=== PATIENT | male | born 1955 | race Caucasian/White ===

== ENCOUNTER 2019-04-22 06:00 | Outpatient (RCR) | payer BC, SELFPAY | END 2019-05-22 00:01 | LOC: SPT 06:00 | PROVIDERS: Family Provider Electrodiagnostic Medicine; Visit Provider Neurological Surgery | DX: Z98.1 Arthrodesis status (principal) | CPT/HCPCS: 97110 ×2; 97112 ×2 ==

== ENCOUNTER → 2019-07-13 11:40 | Outpatient (BNVA) | payer MEDICARE, OTHER, SELFPAY | PROVIDERS: Family Provider Electrodiagnostic Medicine; Visit Provider Internal Medicine | DX: Z00.00 Encounter for general adult medical examination without abnormal findings (principal); I10 Essential (primary) hypertension; E78.5 Hyperlipidemia, unspecified; N52.9 Male erectile dysfunction, unspecified; E78.00 Pure hypercholesterolemia, unspecified; G47.33 Obstructive sleep apnea (adult) (pediatric); Z86.010 Personal history of colon polyps; Z79.899 Other long term (current) drug therapy; R53.83 Other fatigue; Z12.5 Encounter for screening for malignant neoplasm of prostate | CPT/HCPCS: 80061; 84443; 85025; G0103 ==

== ENCOUNTER → 2020-01-09 08:39 | Outpatient (BNVA) | payer MEDICARE, OTHER, SELFPAY | PROVIDERS: Family Provider Electrodiagnostic Medicine; Visit Provider Internal Medicine | DX: I10 Essential (primary) hypertension (principal); K75.81 Nonalcoholic steatohepatitis (NASH); Z12.5 Encounter for screening for malignant neoplasm of prostate | CPT/HCPCS: 80053; 80061; 84443 ==

== ENCOUNTER 2020-01-31 08:02 | Outpatient (CLI) | payer MEDICARE, OTHER, SELFPAY ==
--- NOTE | 2020-01-31 08:00 | MR_ITS ---
WS: [id number] MRI LUMBAR SPINE NONCONTRAST TECHNIQUE: Sagittal T1, T2 and STIR imaging. Axial T1 and T2 imaging. CLINICAL INFORMATION: M51.9 Unspecified thoracic, thoracolumbar and lumbosacral... COMPARISON: MRI FINDINGS: Counting performed from the craniocervical junction. S1 is partially lumbarized. This is in keeping with the prior numbering convention Mild lumbar curve. No acute compression. No high-grade central canal stenosis. Interbody fusion L3-4. Postoperative changes are new from previous. L1-L2: Shallow right subarticular protrusion with narrowing of the right subarticular recess. Mild ri ght and no significant left foraminal narrowing. Mild facet arthropathy. Impingement traversing right L2 nerve root. L2-L3: Mild annular bulging. Moderate facet arthropathy. Mild left and no significant right foraminal narrowing. L3-L4: Prior postoperative changes interbody fusion. Moderate central canal stenosis. Moderate facet arthropathy. Mild bilateral foraminal narrowing. L4-L5: Mild disc bulging in combination with facet arthropathy and ligament flavum hypertrophy result s in moderate to severe central canal stenosis. This is unchanged from previous. Mild right and no si gnificant left foraminal narrowing. L5-S1: Mild disc bulging with slight effacement of the ventral thecal sac. Mild central canal stenosi s. Impingement traversing S1 nerve roots. Moderate facet arthropathy. Moderate left and mild right fo raminal narrowing. S1-S2: Mild annular bulging with slight effacement of ventral thecal sac. Mild to moderate facet arth ropathy. Spinal canal and foramen are patent. MR/MR lumbar spine wo con* [id number] IMPRESSION: 1. Mild lumbar curve. No acute compression. 2. Postoperative changes interbody fusion L3-4 new from previous. Moderate katherin tral canal stenosis at this level with narrowing of the subarticular recess. 3. Moderate to severe central canal stenosis L4-5 unchanged from previous. 4. Mild central canal stenosis L5-S1 with impingement traversing S1 nerve root s. 5. Mild to moderate foraminal narrowing worse at bilateral L3-4, right L4-5 an d bilateral L5-S1. 6. Moderate facet arthropathy L4-L5 and L5-S1. 7. Shallow right subarticular protrusion L1-2 impinges the traversing right L2 nerve root. 8. Counting performed from the craniocervical junction with lumbarization of S 1. Recommend plain film correlation prior to surgical intervention.
== END 2020-01-31 08:03 | disposition home or self-care (01) ==
LOC: RADSHAW 08:05
PROVIDERS: PCP Internal Medicine; Visit Provider Internal Medicine
DX: M51.9 Unspecified thoracic, thoracolumbar and lumbosacral intervertebral disc disorder (principal); M48.061 Spinal stenosis, lumbar region without neurogenic claudication; M48.07 Spinal stenosis, lumbosacral region; M47.816 Spondylosis without myelopathy or radiculopathy, lumbar region; M47.817 Spondylosis without myelopathy or radiculopathy, lumbosacral region; M51.26 Other intervertebral disc displacement, lumbar region
CPT/HCPCS: 72148

== ENCOUNTER → 2020-03-25 08:40 | Outpatient (BNVA) | payer MEDICARE, OTHER, SELFPAY | PROVIDERS: PCP Internal Medicine; Visit Provider Orthopaedic Surgery | DX: M51.9 Unspecified thoracic, thoracolumbar and lumbosacral intervertebral disc disorder (principal) | CPT/HCPCS: 72114 ==

== ENCOUNTER → 2020-04-18 10:07 | Outpatient (BNVA) | payer MEDICARE, OTHER, SELFPAY | PROVIDERS: PCP Internal Medicine; Visit Provider Nurse Practitioner Family | DX: Z20.828 Contact with and (suspected) exposure to other viral communicable diseases (principal) | CPT/HCPCS: 87635 ==

== ENCOUNTER 2020-05-28 12:13 | Day surgery (SDC) | payer MEDICARE, OTHER, SELFPAY ==
[2020-05-27 14:58] VITALS: BMI 36.2
[2020-05-28] VITALS (8 sets, daily range): BP systolic 104–139; BP diastolic 64–85; PULSE 69–77; RESP 12–20; TEMP 36.1–36.6; O2SAT 95–100
--- NOTE | 2020-05-28 | XR_ITS ---
WS: [id number] Lumbar spine, AP and lateral C-arm fluoroscopy views of the lumbar spine in the OR, 05/28/2020 Clinical Data: Laminectomy Comparison: Lumbar spine, 03/25/2020. Findings: The patient has had interbody fusion at L3-L4 with pedicle screws on the left lateral aspect attached with a plate. Dr. Glez performed a lumbar decompression. XR/XR lumbar spine 2-3V* [id number] Impression: L3-L4 lateral body screws.
--- NOTE | 2020-05-28 | SCC_ITS ---
Procedure Done: 1. L3/4 Laminectomy with partial facetectomy 2. L4/5 Laminectomy with partial facetectomy 3. L5/S1 Laminectomy with partial facetectomy 38.0 seconds of fluoroscopic guidance, for a cumulative dose of 27.74 mGy, was provided to Dr. Glez by the radiology department. C-arm images of the lumbar spine were saved for the patient's permanent record. [facility]
[2020-05-28] MEDS: gabapentin 300 mg Capsule PO (12:32)
[2020-05-28] MEDS: sodium chloride 0.9% 1,000 ML 30 ML IV (12:35)
--- NOTE | 2020-05-28 12:43 | ANES.PREANE2 ---
Pre-Anesthetic Assessment Pre-Anesthetic Assessment: Height/Weight: Height 1.8 m Weight 117.934 kg Temp Pulse Resp BP Pulse Ox 97.2 F L 69 18 139/85 98 05/28/20 12:26 05/28/20 12:26 05/28/20 12:26 05/28/20 12:26 05/28/20 12:26 Preop Diagnosis: lumbar stenosis Proposed Procedure: Operation Date: 05/28/20 13:15 Proposed Procedures p Lumbar Spine Decompression at three or more levels [id number] M51.9(Not Applicable) - Pasquale Glez, DO Was Beta Norma taken within 24 hours: N/A Last intake: Intake Last Liquid Date 05/28/20 Last Liquid Time 07:00 Last Solid Date 05/27/20 Last Solid Time 19:00 Social: Social History: No alcohol and No tobacco Exam: Pre-Anes Outpt Exam: alert, oriented x 3, clear to auscultation bilaterally and regular rate & rhythm Airway: Submandibular: WNL Cervical ROM: WNL MP: 2 Dentition: Full History/ROS: No significant history except as noted and No significant complaints Pulmonary: Comments: MORIAH CV/HEM: CV/HEM: HTN : : None reported Hepatic: Hepatic: None reported GI: GI: None reported Metabolic: Metabolic: Morbid obesity Musc/skel: Musc/skel: Lower Back Pain and OA/DJD Anesthetic Plan: ASA status: 2 Anesthesia: Anesthesia Evaluation and General Risk of > 500 ml blood loss (7ml/kg in children): No Meds/Allergies Current Medications: Current Medications Generic Name Dose Route Start Last Admin Trade Name Freq PRN Reason Stop Dose Admin Sodium Chloride 1,000 mls @ 30 ml s/hr 05/28/20 12:00 05/28/20 12:35 Sodium Chloride 0.9% IV 05/29/20 11:59 30 mls/hr .Q24H KIRA Administration PFSH Anesthesia PFSH: Medical History Obstructive sleep apnea Surgical History History of lumbar fusion Family History Other Hypertension Social History Smoking and tobacco status: former smoker Alcohol intake: current Alcohol intake frequency: few times a week History of recent travel: No Data Anesthesia Cardiac Studies: No Data to Display
--- NOTE | 2020-05-28 14:30 | W.PM.OPSUD ---
Surgery/Procedure H&P Update DATE OF PROCEDURE: May 28, 2020 DATE H&P PERFORMED: 05/13/20 H&P UPDATE INFORMATION: I have reviewed H&P completed within last 30 days and I have examined patient prior to procedure PREOP DIAGNOSIS: lumbar stenosis PLANNED PROCEDURE: Operation Date: 05/28/20 13:15 Proposed Procedures p Lumbar Spine Decompression at three or more levels [id number] M51.9(Not Applicable) - Pasquale Glez DO
--- NOTE | 2020-05-28 18:04 | PM.OP ---
Operative Report Date of procedure: May 28, 2020 Pre-op Diagnosis: lumbar stenosis Post-op diagnosis: same Procedure Done: 1. L3/4 Laminectomy with partial facetectomy 2. L4/5 Laminectomy with partial facetectomy 3. L5/S1 Laminectomy with partial facetectomy Surgeon: Pasquale Glez Anesthesia: General Estimated blood loss (mL): 25 Condition: stable Disposition: PACU Procedure: 1. L3/4 Laminectomy with partial facetectomy 2. L4/5 Laminectomy with partial facetectomy 3. L5/S1 Laminectomy with partial facetectomy Patient was brought to the operative suite placed in the prone position after undergoing anesthesia all areas impingement were well-padded patient was prepped and draped in normal sterile fashion. Skin incision made over the L3 /4,L4/5, L5-S1 levels. Attention was first brought to the L3-4 level. This was done under C-arm guidance dilators were passed to the retractors inserted and docked onto the L3 lamina patient was tilted to the contralateral side. The laminectomies perform using high-speed bur spinous processes undermine the lamina was taken down with a high-speed bur medial aspect of facet joint on the left side was taken down and then Kerrison rongeur was then used to complete the laminectomies bilaterally ligament flavum was taken down from L3-L4 bilaterally was significantly thickened medial aspect of facet joint was taken down bilaterally with the Kerrison rongeur and the L3 and L4 nerves were traced with a large curette L3 nerve traced through the L3-4 foramen bilaterally. An L4 nerve was traced around the L4 pedicle. Next it was brought to the L4-5 level. The dilators again were passed the to the tract was docked onto the L4 lamina laminectomy was performed using the high-speed bur the curettes and Kerrison rongeurs used to complete the laminectomy bilaterally ligament flavum was taken down bilaterally from L4-L5. The medial aspect of facet joints taken down the Kerrison rongeur bilaterally. Again the L4 and L5 nerves were traced to the L4 through the foramen bilaterally and the L5 around the L5 pedicle. Ligamentum flavum was Thanksgiving thickened at this level as well dura was in good repair. Was brought to the L5-S1 level again dilators past 2 retractors inserted and docked onto the L5 lamina laminectomy was performed the high-speed bur taken on the medial aspect of facet joint and bilaterally. And then the Kerrison rongeur was used to take down the lamina complete laminectomy and tenotomy aspect of facet joint and taken ligamentum flavum down from L5-S1 simply thickened dura was in good repair L5 and S1 nerves were completely traced large curette L5 nerve through the L5 foramen bilaterally and S1 around the S1 pedicles. Wounds irrigated closed with Vicryl and Monocryl suture sterile dressing applied patient was transferred to the PACU in stable condition
--- NOTE | 2020-05-28 18:30 | ANE.PACU2 ---
Inpatient post-anesthesia follow up: Airway intact: Yes Vital signs: Temperature 98 F Pulse Rate 77 Respiratory Rate 16 Blood Pressure 121/73 Pulse Oximetry 96 Oxygen Delivery Me thod Room Air Oxygen Flow Rate 8 Fraction of Inspir ed Oxygen Hydration adequate: Yes Nausea and vomiting: No Pain level: 3 Mental status: Baseline
== END 2020-05-28 19:05 | disposition home or self-care (01) ==
PROVIDERS: PCP Internal Medicine; Visit Provider Orthopaedic Surgery
PROC: (CPT 63005; principal; 2020-05-28 13:15)
DX: M48.061 Spinal stenosis, lumbar region without neurogenic claudication (principal); G47.33 Obstructive sleep apnea (adult) (pediatric); I10 Essential (primary) hypertension; M19.90 Unspecified osteoarthritis, unspecified site; E66.01 Morbid (severe) obesity due to excess calories; Z68.36 Body mass index [BMI] 36.0-36.9, adult; Z98.1 Arthrodesis status; Z87.891 Personal history of nicotine dependence
CPT/HCPCS: 63047; 63048 ×2; 12345; 72100; 76000; 96365; J0131; J0690; J1100; J2405; J2704; J3010; J3490; J7030

== ENCOUNTER → 2020-07-11 10:43 | Outpatient (BNVA) | payer MEDICARE, OTHER, SELFPAY | PROVIDERS: PCP Internal Medicine; Visit Provider Internal Medicine | DX: Z12.5 Encounter for screening for malignant neoplasm of prostate (principal); E78.00 Pure hypercholesterolemia, unspecified; I10 Essential (primary) hypertension | CPT/HCPCS: 80053; 80061; G0103 ==

== ENCOUNTER → 2020-07-14 08:38 | Outpatient (BNVA) | payer MEDICARE, OTHER, SELFPAY | PROVIDERS: PCP Internal Medicine; Referring Provider Dermatology; Visit Provider Podiatrist Foot & Ankle Surgery | DX: M25.572 Pain in left ankle and joints of left foot (principal) | CPT/HCPCS: 73610 ==

== ENCOUNTER → 2020-07-17 15:45 | Outpatient (BNVA) | payer MEDICARE, OTHER, SELFPAY | PROVIDERS: PCP Internal Medicine; Visit Provider Internal Medicine | DX: E61.1 Iron deficiency (principal); M51.9 Unspecified thoracic, thoracolumbar and lumbosacral intervertebral disc disorder; Z86.010 Personal history of colon polyps; I10 Essential (primary) hypertension; E78.00 Pure hypercholesterolemia, unspecified; G47.33 Obstructive sleep apnea (adult) (pediatric) | CPT/HCPCS: 82607; 82746; 83550; 85025 ==

== ENCOUNTER → 2020-07-23 10:19 | Outpatient (BNVA) | payer MEDICARE, OTHER, SELFPAY | PROVIDERS: PCP Internal Medicine; Visit Provider Internal Medicine | DX: E61.1 Iron deficiency (principal) | CPT/HCPCS: 82270 ==

== ENCOUNTER 2020-08-13 12:13 | Outpatient (CLI) | payer MEDICARE, OTHER, SELFPAY | END 2020-08-13 12:14 | disposition home or self-care (01) | LOC: SPT 12:14 | PROVIDERS: PCP Internal Medicine; Visit Provider Podiatrist Foot & Ankle Surgery | DX: Z46.89 Encounter for fitting and adjustment of other specified devices (principal); M76.821 Posterior tibial tendinitis, right leg | CPT/HCPCS: 97110; 97140; 97161; L3030 ==

== ENCOUNTER 2020-09-03 06:00 | Outpatient (RCR) | payer MEDICARE, OTHER, SELFPAY | END 2020-09-19 23:59 | disposition home or self-care (01) | LOC: TPT 06:00 | PROVIDERS: PCP Internal Medicine; Referring Provider Orthopaedic Surgery; Visit Provider Orthopaedic Surgery | DX: Z47.89 Encounter for other orthopedic aftercare (principal) | CPT/HCPCS: 97110; 97140; 97161 ==

== ENCOUNTER 2020-09-20 06:00 | Outpatient (RCR) | payer MEDICARE, OTHER, SELFPAY | END 2020-10-20 23:59 | disposition home or self-care (01) | LOC: TPT 06:00 | PROVIDERS: PCP Internal Medicine; Referring Provider Orthopaedic Surgery; Visit Provider Orthopaedic Surgery | DX: M76.822 Posterior tibial tendinitis, left leg (principal) | CPT/HCPCS: 97110; 97140; 97164 ==

== ENCOUNTER → 2020-12-31 08:29 | Outpatient (BNVA) | payer MEDICARE, OTHER, SELFPAY | PROVIDERS: PCP Internal Medicine; Visit Provider Internal Medicine | DX: E61.1 Iron deficiency (principal) | CPT/HCPCS: 80053; 83550; 85025 ==

== ENCOUNTER → 2021-05-31 14:08 | Outpatient (BNVA) | payer MEDICARE, SELFPAY | PROVIDERS: PCP Internal Medicine; Visit Provider Family Medicine | DX: R05.9 Cough, unspecified (principal); J01.90 Acute sinusitis, unspecified | CPT/HCPCS: 87400; 87635 ==

== ENCOUNTER → 2021-07-03 10:30 | Outpatient (BNVA) | payer MEDICARE, SELFPAY | PROVIDERS: PCP Internal Medicine; Visit Provider Internal Medicine | DX: I10 Essential (primary) hypertension (principal); Z12.5 Encounter for screening for malignant neoplasm of prostate; E78.00 Pure hypercholesterolemia, unspecified; E61.1 Iron deficiency | CPT/HCPCS: 80053; 80061; 85025; G0103 ==

== ENCOUNTER 2021-10-16 07:45 | Outpatient (CLI) | payer MEDICARE, SELFPAY ==
--- NOTE | 2021-10-16 07:55 | MR_ITS ---
WS: [id number] MRI LUMBAR SPINE WITH AND WITHOUT CONTRAST. HISTORY: LUMBAR REGION RADICULOPATHY COMPARISON: 6 05/28/2020, 01/31/2020 TECHNIQUE: Sagittal and axial multisequence imaging is submitted. Same numbering pattern will be utilized on today's examination which includes a lumbarized S1 segment . Mild curvature of the lumbar spine. Interbody spacer at L3-4. Marrow edema at the L4-5 vertebral bodi es. There is very minimal increased T2 signal within the disc. The loss of disc space height and degenerative changes at the L4-5 level are new and significantly pr ogressed since 01/31/2020. On the postcontrast images there is enhancement within the vertebral bodies but not the disc. Conus terminates normally at L1. L1-L2: Shallow RIGHT subarticular disc protrusion with mild RIGHT subarticular recess narrowing. Marly lar to the prior study. L2-L3: Mild annular disc bulging with ligamentum flavum hypertrophy and facet arthritis. Mild bilater al foraminal narrowing. L3-L4: Diffuse osteophytic ridging and disc bulge. Disc osteophyte extension into the foramina and li gamentum flavum hypertrophy. As before moderate central and bilateral foraminal stenosis. Not signifi cantly progressed. LEFT hemilaminectomy defect. L4-L5: Marked annular disc bulging. Moderate sized RIGHT central to paracentral disc protrusion has i ncreased since the prior study. Marked ligamentum flavum hypertrophy and facet arthritis. There is de formity of the thecal sac and severe central and bilateral subarticular recess stenosis. There is mar ked encroachment upon the traversing RIGHT L5 nerve root with a disc protrusion extending into the RI GHT foramen. Complete effacement of fat in the RIGHT foramen. This disc protrusion appears new since the prior study. Moderate LEFT foraminal stenosis. L5-S1: Marked annular disc bulging with fissures. Ligamentum flavum and facet arthritis. Severe centr al with bilateral subarticular recess and mild bilateral foraminal stenosis. Rudimentary disc at S1-S2. Very minimal narrowing of the LEFT foramen. There is some very mild enhancement at the postsurgical site of L3-4 and new enhancement at L4-5. No abscess. MR/MR lumbar spine wo/w con [id number] IMPRESSION: 1. Status post interbody fusion at L3-4. 2. New advancing degenerative disc disease and endplate irregularity with enha ncement at the L4-5 disc level. This may all be postsurgical and post operative and reactive. The disc does not enhance. Early changes of osteomyelitis cannot be excluded on this appearance. 3. Moderate central to RIGHT paracentral disc protrusion at L4-5 causing sever e central, RIGHT subarticular recess and foraminal stenosis. Significant mass e ffect upon the thecal sac and nerve roots. Displacement of the thecal sac to th e LEFT of midline. Moderate LEFT foraminal stenosis at L4-5. 4. Shallow RIGHT subarticular disc protrusion at L1-2 is unchanged. 5. Moderate central and bilateral foraminal stenosis at L3-4 with a LEFT hemil aminectomy defect. No progression. 6. Severe central with bilateral subarticular recess stenosis at L5-S1 and mil d foraminal stenosis. Similar to the prior study. 7. As reported on prior studies lumbarization of S1. This will be important if additional surgery is necessary.
[2021-10-16] MEDS: gadobenate dimeglumine 20 mL vial IV (09:14)
== END 2021-10-16 07:46 | disposition home or self-care (01) ==
PROVIDERS: PCP Internal Medicine; Visit Provider Neurological Surgery
DX: M54.16 Radiculopathy, lumbar region (principal)
CPT/HCPCS: 72158

== ENCOUNTER 2021-10-23 11:52 | Outpatient (CLI) | payer MEDICARE, SELFPAY ==
--- NOTE | 2021-10-23 12:30 | XRR_ITS ---
PROCEDURE INFORMATION: Exam: XR Lumbosacral Spine Exam date and time: 10/23/2021 12:35 PM Age: 66 years old Clinical indication: Low back pain; Prior surgery; Surgery type: Previous decompression and fusion surgeries on low back. Patient HX: -pain in low back, legs go numb; Additional info: Radiculopathy, lumbar region TECHNIQUE: Imaging protocol: XR of the lumbosacral spine. Views: 6 or more views. Including flexion and extension views. COMPARISON: MR lumbar spine wo/w con [id number] 10/16/2021 8:31 AM FINDINGS: Bones/joints: L2-L3 surgical hardware. Multilevel moderate disc space narrowing and productive degenerative endplate changes throughout the spine. Mild levocurvature of the lumbar spine. Soft tissues: Unremarkable. Vasculature: Scattered vascular calcifications. XR/XR lumbar spine 6V w f/e [id number] IMPRESSION: 1. L2-L3 surgical hardware. 2. Multilevel moderate disc space narrowing and productive degenerative endplate changes throughout the spine. 3. Scattered vascular calcifications. 4. Mild levocurvature of the lumbar spine.
== END 2021-10-23 11:53 | disposition home or self-care (01) ==
LOC: RAD 11:58
PROVIDERS: PCP Internal Medicine; Visit Provider Neurological Surgery
DX: M54.16 Radiculopathy, lumbar region (principal)
CPT/HCPCS: 72114

== ENCOUNTER 2022-01-06 09:00 | Outpatient (CLI) | payer MEDICARE, SELFPAY ==
--- NOTE | 2022-01-06 09:30 | XR_ITS ---
WS: [id number] Lumbar spine, 3 views, 01/06/2022 Clinical Data: ARTHRODESIS STATUS/S/P LUMBAR SPINAL FUSION Comparison: Lumbar spine, 10/23/2021. Findings: The patient has had a posterior lumbar sacral fusion L4-S1 with bilateral pedicle screws and connecti ng rods. There is an older left lateral fusion at L3-L4. There is artificial disc material L3-L4, L4- L5 and L5-S1. There is anterior osteoarthritic change from L2 through S1. The transverse processes and SI joints re main the same. There is a slight levoscoliosis. XR/XR lumbar spine 2-3V* [id number] Impression: 1. Recent L4-S1 posterior lumbar fusion which is stable. 2. Stable left lateral L3-L4 fusion. 3. Multiple artificial disc material at L3-4 through L5 5 S1.
== END 2022-01-06 09:01 | disposition home or self-care (01) ==
LOC: RAD 09:23
PROVIDERS: PCP Internal Medicine; Visit Provider Neurological Surgery
DX: Z98.1 Arthrodesis status (principal)
CPT/HCPCS: 72100

== ENCOUNTER → 2022-01-19 08:50 | Outpatient (BNVA) | payer MEDICARE, SELFPAY | PROVIDERS: PCP Internal Medicine; Visit Provider Internal Medicine | DX: Z12.5 Encounter for screening for malignant neoplasm of prostate (principal); E61.1 Iron deficiency; E78.5 Hyperlipidemia, unspecified | CPT/HCPCS: 80053; 83036; 85025 ==

== ENCOUNTER 2022-02-25 11:46 | Outpatient (CLI) | payer MEDICARE, SELFPAY ==
--- NOTE | 2022-02-25 11:57 | XR_ITS ---
WS: [id number] XR chest 2V* [id number] REASON FOR EXAM: MOTTA FINDINGS: The heart and the mediastinum are within normal limits. Calcified granulomatous disease in both hemithoraces. Atelectasis in the right lower lung with elevation of the right hemidiaphragm. No other acute pulmonary parenchymal or pleural abnormality is identified. Mild to moderate degenerative spondylosis in the mid and lower thoracic spine. XR/XR chest 2V* [id number] IMPRESSION: Atelectasis in the right lower lung with elevation of the right hemidiaphragm. No other significant findings.
--- NOTE | 2022-02-25 12:43 | CT_ITS ---
WS: [id number] CTA OF THE CHEST WITH PULMONARY EMBOLISM PROTOCOL TECHNIQUE: High-resolution contrast enhanced CTA of the chest with coronal and sagittal reformatted i mages with pulmonary embolism protocol. MIP images are also reviewed. CLINICAL INFORMATION: MOTTA COMPARISON: None. DLP: 560.[address] scans at [facility] use at least one of these dose optimization techniques: automated e xposure control; mA and/or kV adjustment per patient size (includes targeted exams where dose is matc hed to clinical indication); or iterative reconstruction. FINDINGS: Proximal main pulmonary arteries are normal. Normal segmental and subsegmental pulmonary arteries. No evidence of pulmonary embolus. Prominent elevation RIGHT hemidiaphragm. Normal caliber thoracic aorta. Normal aortic arch. Normal de scending thoracic aorta. Fluid distended stomach. Tiny esophageal hiatal hernia. RIGHT adrenal adenoma measuring 13 mm. LEFT a drenal gland is partially visualized. No axillary lymphadenopathy. Great vessel origins appear patent. Mild chronic emphysematous changes. Slight bibasilar atelectasis RIGHT greater than LEFT. Subsegmental atelectasis in the RIGHT middle lo be anteriorly and RIGHT lower lobe. No focal pneumonia or significant pleural fluid. CT/CT angio chest PE protcl [id number] IMPRESSION: 1. No evidence of pulmonary embolus. 2. Mild chronic emphysematous changes. 3. Prominent elevation RIGHT hemidiaphragm with volume loss RIGHT lung. 4. Subsegmental atelectasis in the RIGHT middle lobe and RIGHT lower lobe. Com pressive atelectasis RIGHT lower lobe. 5. No focal pneumonia or significant pleural fluid.
== END 2022-02-25 11:47 | disposition home or self-care (01) ==
LOC: RAD 11:48
PROVIDERS: PCP Internal Medicine; Visit Provider Internal Medicine
DX: R06.09 Other forms of dyspnea (principal); J98.11 Atelectasis
CPT/HCPCS: 71046; 71275; Q9967

== ENCOUNTER 2022-03-02 13:41 | Outpatient (CLI) | payer MEDICARE, SELFPAY ==
--- NOTE | 2022-03-02 14:30 | MR_ITS ---
WS: [id number] MRI RIGHT SHOULDER NONCONTRAST TECHNIQUE: Sagittal T2, coronal T1, T2 and proton density imaging. Axial gradient PDE imaging. CLINICAL INFORMATION: pain in the right shoulder COMPARISON: None. FINDINGS: Moderate degenerative arthritis AC joint with mild edema. Moderate fluid at the AC joint. Mild downsl oping acromion. Subacromial spurring with slight impingement on the distal supraspinatus. Tendinopath y in the distal supraspinatus. Normal infraspinatus. Normal teres minor. Normal subscapularis. Normal biceps tendon in the bicipital groove. Normal biceps labral anchor. Intra-articular biceps tendon is normal. Normal bone marrow sig nal in the humerus and glenoid. MR/MR shoulder RT wo con* [id number] IMPRESSION: 1. Moderate degenerative arthritis AC joint with moderate fluid and edema. Mil d downsloping of the acromion. Slight subacromial spurring. Tendinopathy in the distal supraspinatus. 2. Rotator cuff is otherwise normal. No high-grade rotator cuff tears. 3. Normal biceps tendon in the bicipital groove. 4. Normal bone marrow signal in the humerus and glenoid. 5. No other remarkable findings.
--- NOTE | 2022-03-02 15:15 | MR_ITS ---
WS: [email or web address] MRI CERVICAL SPINE NONCONTRAST TECHNIQUE: Sagittal T1, T2 and STIR imaging. Axial T2, gradient, and fiesta imaging. CLINICAL INFORMATION: pain in the right shoulder COMPARISON: None. FINDINGS: Straightening of the normal cervical lordosis. Mild disc osteophyte complexes worse at C5-C6 and C6-C 7 C2-C3: Normal. C3-C4: Mild disc bulging with osteophytic ridging. Severe LEFT bony foraminal narrowing. Advanced LEF T facet arthropathy. Mild RIGHT foraminal narrowing. C4-C5: Disc osteophyte complex with endplate ridging. Mild central canal stenosis with slight indenta tion on the cervical cord. Moderate LEFT greater than RIGHT bony foraminal narrowing. Moderate facet arthropathy. C5-C6: Central disc osteophyte protrusion with indentation on the cervical cord. Moderate central can al stenosis with mild flattening of the cervical cord. Moderate to severe bilateral bony foraminal na rrowing worse on the LEFT. C6-C7: Disc osteophyte complex with small LEFT pericentral protrusion. Slight indentation on cervical cord with mild central canal stenosis. Moderate to severe LEFT and mild RIGHT bony foraminal narrowi ng. Mild facet arthropathy. C7-T1: Mild disc bulging. Spinal canal and foramen are patent. Visualized brain stem structures: Normal. Prevertebral soft tissues: Normal. MR/MR cervical spin wo con* [id number] IMPRESSION: 1. Straightening of the normal cervical lordosis. 2. Moderate central canal stenosis C5-C6 with indentation on the cervical cord and mild flattening. 3. Mild central canal stenosis C4-C5 and C6-C7 due to small disc osteophyte pr otrusions. 4. Severe LEFT bony foraminal narrowing C3-C4 with advanced LEFT facet arthrop athy. 5. Moderate to severe bony foraminal narrowing worse at LEFT C4-C5, bilateral C5-C6 worse in the LEFT, and LEFT C6-C7.
== END 2022-03-02 13:42 | disposition home or self-care (01) ==
LOC: RAD 13:41
PROVIDERS: PCP Internal Medicine; Visit Provider Internal Medicine
DX: M62.838 Other muscle spasm (principal); M51.9 Unspecified thoracic, thoracolumbar and lumbosacral intervertebral disc disorder; M19.011 Primary osteoarthritis, right shoulder; M48.02 Spinal stenosis, cervical region
CPT/HCPCS: 72141; 73221

== ENCOUNTER 2022-03-02 13:42 | Outpatient (CLI) | payer MEDICARE, SELFPAY ==
--- NOTE | 2022-03-02 14:29 | XRR_ITS ---
PROCEDURE INFORMATION: Exam: XR Lumbosacral Spine Exam date and time: 03/02/2022 2:29 PM Age: 66 years old Clinical indication: Condition or disease; Other: Arthrodesis status; Prior surgery TECHNIQUE: Imaging protocol: Radiologic exam of the lumbosacral spine. Views: 2 or 3 views. COMPARISON: CR XR lumbar spine 2-3V* [id number] 01/06/2022 9:31 AM FINDINGS: Bones/joints: Trace levocurvature of the lumbar spine is again seen. The normal lumbar lordosis is maintained, without listhesis. Stable appearance of L2-L5 fusion. No evidence of hardware related complication. No fracture identified. Vertebral body heights are well preserved. There is multilevel degenerative changes, manifested by intervertebral disc space narrowing, endplate osteophytes and facet joint arthrosis. Soft tissues: Unremarkable. XR/XR lumbar spine 2-3V* [id number] IMPRESSION: 1. Stable appearance of L2-L5 fusion, without evidence of hardware related complication. 2. Degenerative changes of the lumbar spine. 3. No acute injury.
== END 2022-03-02 13:43 | disposition home or self-care (01) ==
LOC: RAD 13:51
PROVIDERS: PCP Internal Medicine; Visit Provider Neurological Surgery
DX: Z98.1 Arthrodesis status (principal); M47.896 Other spondylosis, lumbar region
CPT/HCPCS: 72100

== ENCOUNTER 2022-03-10 10:12 | Outpatient (CLI) | payer MEDICARE, SELFPAY ==
--- NOTE | 2022-03-10 10:18 | CT_ITS ---
WS: [id number] CT CERVICAL SPINE HISTORY: SPINAL STENOSIS TECHNIQUE: Contiguous 2.5 mm axial imaging performed through the entire cervical spine. Sagittal and coronal reformats also performed. All CT scans at [facility] use at least one of these dose o ptimization techniques: automated exposure control; mA and/or kV adjustment per patient size (include s targeted exams where dose is matched to clinical indication); or iterative reconstruction. DLP: 458.00 mGy.cm COMPARISON: MRI 03/02/2022 Very slight retrolisthesis of C5 by 2 mm. No fractures. Mild disc space narrowing and desiccation at C4-5, C6-7 and C7-T1. Lateral masses of C1 and C2 are aligned. Odontoid is intact. C2-C3: Very shallow central disc protrusion. No stenosis. C3-C4: Marked hypertrophic bone formation involving the LEFT facets with narrowing of the facet joint . At additional vertebral body osteophyte encroaching into the foramen. Severe LEFT foraminal stenosi s. There is mild encroachment but osteophyte on the LEFT lateral thecal sac. No significant RIGHT for aminal stenosis. C4-C5: Mild osteophytic ridging around the vertebral bodies. Bilateral facet joint arthritis and hype rtrophy. Moderate bilateral foraminal stenosis. C5-C6: Mild osteophytic ridging and facet arthritis. Moderate central and bilateral foraminal stenosi s. C6-C7: Mild osteophytic ridging encroaching into the thecal sac and LEFT foramen. Mild central with m oderate to severe LEFT foraminal and mild RIGHT foraminal stenosis. C7-T1: No stenosis. Lung apices are clear. Scattered calcification in the carotid bifurcations. CT/CT cervical spin wo con* [id number] IMPRESSION: 1. Multilevel areas of foraminal stenosis. Comparison to the recent MRI evalua tion. 2. Severe LEFT foraminal stenosis due to hypertrophic bone formation from the vertebral body and facets. 3. Moderate bilateral foraminal stenosis at C4-5 predominantly due to osteophy te disease. 4. Moderate central and bilateral foraminal stenosis at C5-6 due to osteophyte s. 5. Moderate to severe LEFT foraminal and mild RIGHT foraminal stenosis at C6-7 .
== END 2022-03-10 10:13 | disposition home or self-care (01) ==
LOC: RAD 10:13
PROVIDERS: PCP Internal Medicine; Visit Provider Neurological Surgery
DX: M48.02 Spinal stenosis, cervical region (principal)
CPT/HCPCS: 72125

== ENCOUNTER 2022-03-15 09:40 | Outpatient (CLI) | payer MEDICARE, SELFPAY ==
--- NOTE | 2022-03-15 | ECG_ITS ---
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 Interpretive Statements NAME OF STUDY: LEXISCAN SESTAMIBI STRESS TEST INDICATION: Dyspnea on Exertion PROCEDURE: At the baseline, the EKG revealed normal sinus rhythm with a rate of 76 bpm. Some nonspecific changes.. The baseline h normal eart was 152/92 bpm with a blood pressue of 65 mm of Hg Lexiscan was infused over a period of 20 seconds. A total of 0.4 milligrams of Lexiscan was infused. The stress phase was continued for a total of 5 minutes. Heart rate at the end of the stress phase was 76 bpm with a blood pressure 134/78 mm of Hg. The EKG at the peak infusion revealed no significant changes. Sestamibi was injected 20 seconds after the Lexiscan infusion. The blood pressure was not performed Heart rate at the end of the recovery phase was 75 bpm CONCLUSION: 1. No significant EKG changes with the LexiScan infusion 2. No LexiScan induced chest pain or cardiac arrhythmia 3. Normal blood pressure and heart rate response 4. Sestamibi/sestamibi perfusion scan pending; see separate report. Electronically Signed On 03-16-2022 12:43:22 CDT by Jennifer Ferreira M.D. [email or web address]
[2022-03-15 09:49] VITALS: BMI 34.2
--- NOTE | 2022-03-15 09:49 | NMCV_ITS ---
NM erasmo perf SPECT r/s* [id number] Lonny Quach Age: 66 Gender: M : 1955 Exam Date: 03/15/2022 09:49 Ordering Phys: Waldo Arango MD Technologist: ANNY Orozco Exam Location: [facility] Indications: SHORTNESS OF BREATH STRESS TEST Please see separate stress test report in [facility] for full findings IMAGE PROTOCOL Rest/Stress 1 Lexiscan Day Radiopharmaceutical Dose (mCi) Administration Site Administered by Rest: Tc-99m 10.7 IV ANNY Terry Sestamibi Stress:Tc-99m 32.4 IV ANNY Orozco Sestamikatarina Rest: 15-Mar-2022 60 Discovery 630 Stress: 15-Mar-2022 30 Discovery 630 0.4mg Lexiscan. Images obtained in supine and prone position. SPECT RESULTS Technical Quality: Excellent Raw Data Analysis: Normal Image Corrections: Summed Stress Score: 5 Summed Rest Score: 6 Summed Difference Score: 1 PERFUSION FINDINGS Small to moderate area of slightly decreased tracer uptake was noted in the mid inferolateral, apical lateral, mid anteroseptal, apical septal and LV apex. Some reversibility was noted in the mid inferolateral region. FUNCTIONAL RESULTS (calculated via Gated SPECT) Stress Image LV EF (%): 65 Stress EDV (mL):99 TID: 1.07 Stress ESV (mL):35 FUNCTIONAL FINDINGS: Segmental wall motion analysis revealing no gross wall motion abnormalities. IMPRESSIONS 1. Myocardial perfusion imaging revealing a small area reversible defect in the mid inferolateral region, suggestive of ischemia in the distribution of the left circumflex artery. 2. Normal LV ejection fraction 65%. 3. LV wall motion analysis revealing no gross wall motion normalities. 4. Normal LV volume Dr Jennifer Ferreira MD [facility] (Electronically Signed) Final Date: 15 March 2022 14:08 S
[2022-03-15] MEDS: regadenoson 0.4 Mg/5 ml Syringe IVP (12:00)
[2022-03-15 12:24] VITALS: BP 130/80; PULSE 78
== END 2022-03-15 09:41 | disposition home or self-care (01) ==
PROVIDERS: PCP Internal Medicine; Visit Provider Internal Medicine
DX: R06.00 Dyspnea, unspecified (principal)
CPT/HCPCS: 78452; 93017; A9500; J2785

== ENCOUNTER → 2022-03-18 14:14 | Outpatient (BNVA) | payer MEDICARE, SELFPAY | PROVIDERS: PCP Internal Medicine; Visit Provider Internal Medicine Cardiovascular Disease | DX: R94.39 Abnormal result of other cardiovascular function study (principal); J98.6 Disorders of diaphragm; I10 Essential (primary) hypertension; E78.00 Pure hypercholesterolemia, unspecified; G47.33 Obstructive sleep apnea (adult) (pediatric); Z87.891 Personal history of nicotine dependence; R06.00 Dyspnea, unspecified; R06.09 Other forms of dyspnea; J44.9 Chronic obstructive pulmonary disease, unspecified; J98.11 Atelectasis; M48.02 Spinal stenosis, cervical region | CPT/HCPCS: 99203; 99204 ==

== ENCOUNTER → 2022-04-09 09:01 | Outpatient (BNVA) | payer MEDICARE, SELFPAY | PROVIDERS: PCP Internal Medicine; Visit Provider Internal Medicine Pulmonary Disease | DX: R06.09 Other forms of dyspnea (principal); J98.6 Disorders of diaphragm; M48.02 Spinal stenosis, cervical region; J43.9 Emphysema, unspecified | CPT/HCPCS: 99214 ==

== ENCOUNTER 2022-04-21 06:16 | Outpatient (CLI) | payer MEDICARE, SELFPAY ==
--- NOTE | 2022-04-21 06:35 | CT_ITS ---
WS: [id number] CTA NECK TECHNIQUE: Contrast enhanced CTA of the neck with coronal and sagittal reformatted images and maximum intensity projection (MIP) images. NASCET criteria utilized. CLINICAL INFORMATION: PHRENIC NERVE PALSY, CAROTID ARTERY INJURY, NECK SWELLING COMPARISON: None. DLP: 374.[address] scans at [facility] use at least one of these dose optimization techniques: automated e xposure control; mA and/or kV adjustment per patient size (includes targeted exams where dose is matc hed to clinical indication); or iterative reconstruction. FINDINGS: Palpable marker RIGHT neck in the area of patient concern. Deep to the palpable marker is n ormal appearing parotid gland. RIGHT: RIGHT common carotid artery is patent. Moderate calcification RIGHT carotid bulb extending int o the ICA. Less than 50% ICA stenosis. ICA is patent to the skull base. Calcified LEFT: LEFT common carotid artery is patent. Mild atheromatous plaque LEFT carotid bulb. No significan t LEFT ICA stenosis. LEFT ICA is patent to the skull base. Codominant and patent vertebral arteries bilaterally. Proximal basilar artery is patent. Mild caverno us carotid calcification. Mild calcification of the LEFT subclavian artery origin which remains paten t. Mastoid air cells and paranasal sinuses are well aerated. Mild mucosal thickening ethmoid air cells. No evidence of carotid artery aneurysm. Normal variant Prominent RIGHT dominant jugular vein of doubt ful clinical significance. Thyroid gland appears normal. Lung apices are well aerated. No evidence of pathologic mass or lesion in the upper mediastinum or lung apex. Submandibular glands are normal. Parotid glands are normal. No cervical lymphadenopathy. Mild spondylitic changes cervical spine. No other remarkable findings. CT/CT angio neck 84055 IMPRESSION: 1. No evidence of RIGHT carotid aneurysm. Moderate calcified atheromatous plaq ue RIGHT carotid bulb extending into the ICA with less than 50% stenosis. RIGHT ICA is patent to the skull base. 2. Asymmetric prominent RIGHT dominant jugular vein. This is a normal variant and typically of doubtful clinical significance. This may account for reported area of fullness in the RIGHT neck. If history of central line or concern for t hrombus ultrasound could be obtained, although no definite evidence of thrombus on this arterial phase study. 3. No cervical lymphadenopathy. 4. Normal salivary glands. 5. No evidence of mediastinal mass or apical lung mass to account for nerve pa lsy. Lung apices are well aerated. 6. No other remarkable findings.
[2022-04-21 06:58] LABS: Blood Urea Nitrogen 16 mg/dL (8-23); Glomerular Filtration Rate 74.3 mL/min (90-130)
[2022-04-21] MEDS: iohexol 350 mg/mL 100 mL Btl IV (07:07)
== END 2022-04-21 06:17 | disposition home or self-care (01) ==
LOC: RAD 06:17
PROVIDERS: Radiology Diagnostic Radiology; PCP Internal Medicine; Visit Provider Psychiatry & Neurology Neurology
DX: G58.8 Other specified mononeuropathies (principal); R22.1 Localized swelling, mass and lump, neck
CPT/HCPCS: 70498; 82565; 84520; Q9967

== ENCOUNTER → 2022-04-23 09:53 | Outpatient (BNVA) | payer MEDICARE, SELFPAY | PROVIDERS: PCP Internal Medicine; Visit Provider Specialist | DX: J98.6 Disorders of diaphragm (principal); R06.09 Other forms of dyspnea; G47.33 Obstructive sleep apnea (adult) (pediatric); G58.8 Other specified mononeuropathies; J44.9 Chronic obstructive pulmonary disease, unspecified; M51.36 Other intervertebral disc degeneration, lumbar region; Z87.891 Personal history of nicotine dependence | CPT/HCPCS: 99202 ==

== ENCOUNTER → 2022-05-19 14:12 | Outpatient (BNVA) | payer MEDICARE, SELFPAY | PROVIDERS: PCP Internal Medicine; Visit Provider Internal Medicine Pulmonary Disease | DX: R06.02 Shortness of breath (principal); J44.9 Chronic obstructive pulmonary disease, unspecified; J98.6 Disorders of diaphragm; R06.09 Other forms of dyspnea; M48.02 Spinal stenosis, cervical region; Z87.891 Personal history of nicotine dependence | CPT/HCPCS: 99214 ==

== ENCOUNTER 2022-06-07 08:49 | Outpatient (CLI) | payer MEDICARE, SELFPAY ==
--- NOTE | 2022-06-07 09:15 | FL_ITS ---
WS: [id number] Fluoroscopic sniff test, 06/07/2022 Clinical Data: Paralyzed right diaphragm Comparison: None. Fluoroscopy time: 0.5 # of spot films: 1 Findings: The patient's right diaphragm was elevated. On normal breathing the right diaphragm would elevate dur ing inspiration as the left diaphragm distended. The sniff test accentuated the normal downward movem ent of the left diaphragm and the abnormal upward movement of the right diaphragm. FL/FL sniff test [id number] Impression: Elevated and paralyzed right diaphragm which exhibited paradoxical movement dur ing the sniff test.
== END 2022-06-07 08:50 | disposition home or self-care (01) ==
LOC: RAD 08:51
PROVIDERS: PCP Internal Medicine; Visit Provider Internal Medicine Pulmonary Disease
DX: J98.6 Disorders of diaphragm (principal); J44.9 Chronic obstructive pulmonary disease, unspecified; R06.02 Shortness of breath
CPT/HCPCS: 76000; 94060; 94726; 94729

== ENCOUNTER → 2022-08-13 11:16 | Outpatient (BNVA) | payer MEDICARE, SELFPAY | PROVIDERS: PCP Internal Medicine; Visit Provider Internal Medicine | DX: Z00.00 Encounter for general adult medical examination without abnormal findings (principal); E78.00 Pure hypercholesterolemia, unspecified; Z12.5 Encounter for screening for malignant neoplasm of prostate; N52.9 Male erectile dysfunction, unspecified | CPT/HCPCS: 80053; 80061; 84154; 85025; G0103 ==

== ENCOUNTER 2022-08-26 08:42 | Outpatient (CLI) | payer MEDICARE, SELFPAY ==
--- NOTE | 2022-08-26 08:59 | XR_ITS ---
WS: [id number] XR hip RT 2-3V wo/w pel* [id number] REASON FOR EXAM: PAIN IN RIGHT HIP FINDINGS: No fracture or focal bone lesion. No soft tissue abnormality. Moderately severe narrowing of the joint space. Significant subchondral sclerosis and osteophytosis o f the acetabulum with significant osteophytosis of the femoral head. XR/XR hip RT 2-3V wo/w pel* [id number] IMPRESSION: Moderately severe osteoarthritis of the right hip.
== END 2022-08-26 08:43 | disposition home or self-care (01) ==
PROVIDERS: PCP Internal Medicine; Visit Provider Internal Medicine
DX: M16.11 Unilateral primary osteoarthritis, right hip (principal)
CPT/HCPCS: 73502

== ENCOUNTER → 2022-09-20 15:08 | Outpatient (BNVA) | payer MEDICARE, SELFPAY | PROVIDERS: PCP Internal Medicine; Visit Provider Dermatology | DX: L30.0 Nummular dermatitis (principal); L82.0 Inflamed seborrheic keratosis; D18.01 Hemangioma of skin and subcutaneous tissue; L57.8 Other skin changes due to chronic exposure to nonionizing radiation; L81.4 Other melanin hyperpigmentation | CPT/HCPCS: 17110; 99213 ==

== ENCOUNTER → 2022-09-22 09:19 | Outpatient (BNVA) | payer MEDICARE, SELFPAY | PROVIDERS: PCP Internal Medicine; Referring Provider Internal Medicine; Visit Provider Anesthesiology Pain Medicine | DX: M51.9 Unspecified thoracic, thoracolumbar and lumbosacral intervertebral disc disorder (principal); M48.062 Spinal stenosis, lumbar region with neurogenic claudication; M48.02 Spinal stenosis, cervical region; M16.11 Unilateral primary osteoarthritis, right hip | CPT/HCPCS: 99204 ==

== ENCOUNTER → 2022-09-27 13:34 | Outpatient (BNVA) | payer MEDICARE, SELFPAY | PROVIDERS: PCP Internal Medicine; Visit Provider Anesthesiology Pain Medicine | DX: M16.11 Unilateral primary osteoarthritis, right hip (principal) | CPT/HCPCS: 20610; 77002; J1030; J3490 ==

== ENCOUNTER → 2022-10-25 06:53 | Outpatient (BNVA) | payer MEDICARE, SELFPAY | PROVIDERS: PCP Internal Medicine; Visit Provider Student in an Organized Health Care Education/Training Program | DX: M16.11 Unilateral primary osteoarthritis, right hip (principal) | CPT/HCPCS: 99204 ==

== ENCOUNTER 2022-10-26 15:32 | Outpatient (CLI) | payer MEDICARE, SELFPAY ==
--- NOTE | 2022-10-26 15:44 | XRR_ITS ---
PROCEDURE INFORMATION: Exam: XR Chest Exam date and time: 10/26/2022 3:48 PM Age: 67 years old Clinical indication: Condition or disease; Other: Disorders of diaphragm; Patient HX: Paralyzed right diaphragm; Additional info: J98.6 - disorders of diaphragm TECHNIQUE: Imaging protocol: Radiologic exam of the chest. Views: 2 views. COMPARISON: CR XR chest 2V* [id number] 02/25/2022 12:00 PM FINDINGS: Lungs: Unremarkable. No consolidation. Pleural spaces: Unremarkable. No pleural effusion. No pneumothorax. Heart/Mediastinum: Unremarkable. No cardiomegaly. Bones/joints: Unremarkable. XR/XR chest 3V [id number] IMPRESSION: No acute findings.
== END 2022-10-26 15:33 | disposition home or self-care (01) ==
PROVIDERS: PCP Internal Medicine; Visit Provider Specialist
DX: J98.6 Disorders of diaphragm (principal)
CPT/HCPCS: 71047

== ENCOUNTER 2022-11-25 08:43 | Outpatient (CLI) | payer MEDICARE, SELFPAY ==
--- NOTE | 2022-11-25 | XR_ITS ---
WS: [id number] XR lumbar spine 2-3V* [id number] REASON FOR EXAM: ARTHRODESIS STATUS FINDINGS: Posterior pedicle screws with interconnecting rods L3-S1. Sideplate with screw fixation L2-L3. Interb darío fusion device at L2-L3. Presumed interbody fusion devices at L3-L4 and L4-L5. Surgical appliances are intact and in proper position and alignment and unchanged compared to 022. The lumbar spine is unchanged compared to previous examination of 03/02/2022. XR/XR lumbar spine 2-3V* [id number] IMPRESSION: Stable postoperative lumbar spine as above.
== END 2022-11-25 08:44 | disposition home or self-care (01) ==
PROVIDERS: PCP Internal Medicine; Visit Provider Neurological Surgery
DX: Z98.1 Arthrodesis status (principal)
CPT/HCPCS: 72100

== ENCOUNTER 2022-12-14 12:41 | Outpatient (CLI) | payer MEDICARE, SELFPAY ==
--- NOTE | 2022-12-14 13:00 | CT_ITS ---
WS: [id number] CT RIGHT HIP NONCONTRAST TECHNIQUE: Noncontrast CT of the RIGHT hip to include the RIGHT knee. CLINICAL INFORMATION: DEGENERATIVE ARTHRITIS RIGHT HIP COMPARISON: None. DLP: [address] scans at [facility] use at least one of these dose optimization techniques: automated e xposure control; mA and/or kV adjustment per patient size (includes targeted exams where dose is matc hed to clinical indication); or iterative reconstruction. FINDINGS: Advanced arthritis both hips with hypertrophic changes about the acetabulum. Advanced joint space dionicio rowing bilaterally. Moderate degenerative arthritis sacroiliac joints with subchondral sclerosis. Pos toperative changes pedicle screw fixation lower lumbar spine. Normal visualized pubic rami. Tiny fat- containing hernia. Enlarged prostate with calcification. Thickening of the seminal vesicles.Correlati on PSA. Sigmoid diverticulosis. CT/CT hip RT SHAN IMPRESSION: Images obtained for preoperative purposes.
== END 2022-12-14 12:42 | disposition home or self-care (01) ==
PROVIDERS: PCP Internal Medicine; Referring Provider Clinical Nurse Specialist Adult Health; Visit Provider Student in an Organized Health Care Education/Training Program
DX: M16.0 Bilateral primary osteoarthritis of hip (principal); M46.1 Sacroiliitis, not elsewhere classified; Z98.890 Other specified postprocedural states; N40.0 Benign prostatic hyperplasia without lower urinary tract symptoms; K57.30 Diverticulosis of large intestine without perforation or abscess without bleeding
CPT/HCPCS: 73700; 80053; 81000; 85025

== ENCOUNTER → 2022-12-20 11:08 | Outpatient (BNVA) | payer MEDICARE, SELFPAY | PROVIDERS: PCP Internal Medicine; Visit Provider Student in an Organized Health Care Education/Training Program | DX: M16.11 Unilateral primary osteoarthritis, right hip | CPT/HCPCS: 99214 ==

== ENCOUNTER 2023-01-05 11:04 | Observation (INO) | payer MEDICARE, SELFPAY ==
[2023-01-04 09:45] VITALS: BMI 34.2
[2023-01-05] VITALS (17 sets, daily range): BP systolic 95–164; BP diastolic 67–98; PULSE 61–91; RESP 12–20; TEMP 36.1–37.1; O2SAT 94–100
[2023-01-05] MEDS: acetaminophen 1,000 MG/100 ML PIGGYBACK 400 MG IV ×3 (06:36→22:05)
[2023-01-05] MEDS: lactated ringers 500 ML IV (06:38)
[2023-01-05] MEDS: ketorolac 30 mg/mL INJ IVP (06:42)
[2023-01-05 06:45] LABS: Basophils # 0.1 10^3/uL (0.0-0.1); Basophils % 0.9 %; Eosinophils # 0.2 10^3/uL (0.0-0.8); Eosinophils % 2.8 %; Hemoglobin 15.8 g/dL (11.7-16.6); Lymphocytes # 1.6 10^3/uL (0.8-4.8); Mean Corpuscular HGB Conc 33.6 g/dL (30.0-36.0); Mean Corpuscular Volume 92.2 fl (80-94); Mean Platelet Volume 9.3 fL (7.4-10.4); Monocytes # 0.7 10^3/uL (0.2-0.9); Monocytes % 9.7 %; Neutrophils # 4.85 10^3/uL (1.8-7.7); Neutrophils % 65.2 %; Nucleated Red Blood Cells % 0 %; Platelet Count 223 10^3/cmm (130-400); Red Cell Distribution Width 13.2 % (12.1-15.1); White Blood Count 7.4 10^3/uL (4.0-10.0)
--- NOTE | 2023-01-05 06:50 | W.PM.OPSUD ---
Surgery/Procedure H&P Update DATE OF PROCEDURE: January 05, 2023 DATE H&P PERFORMED: 12/20/22 CHANGES TO PREVIOUS DOCUMENTATION: None. Patient's failed conservative treatment for right hip degenerative joint disease we talked about his treatment options at this point time through shared decision making he elects to proceed with a right total hip arthroplasty Raz robotic assisted. Plan will be through an anterior approach to decrease risk of instability given his lumbar fusion history. He understands the risk benefits complication alternatives with surgery. Patient's went through the preoperative clearance process at this point in time he been medically optimized. He has had no change in his symptoms prior to today and at this point in time has no urinary symptoms or new complaints. At this point time through shared decision making he agrees and would like to proceed with a right total hip arthroplasty Raz robotic assisted. Consent obtained. All questions answered. PREOP DIAGNOSIS: Right hip DJD PRIMARY INDICATION FOR PROCEDURE: Right hip degenerative joint disease PLANNED PROCEDURE: Operation Date: 01/04/23 07:00 Proposed Procedures p Raz Robot Anterior Hip Arthroplasty(Right) - Jay Andrea DO Operation Date: 01/05/23 07:00 Proposed Procedures p RIGHT TOTAL HIP ARTHROPLASTY 81814,M16.9(Right) - Jay Andrea DO
[2023-01-05] MEDS: ceFAZolin 2,000 MG in sodium chloride 0.9% (plus) 50 ML 100 MG IV ×3 (06:58→22:48)
[2023-01-05] MEDS: sodium chloride 0.9% 1,000 ML 30 ML IV (07:10)
[2023-01-05 07:14] LABS: Blood Urea Nitrogen 23 mg/dL (8-23); Calcium 9.7 mg/dL (8.5-10.5); Carbon Dioxide 27 mmol/L (22-29); Chloride 102 mmol/L (98-107); Glomerular Filtration Rate 83.7 mL/min (90-130); Glucose 101 mg/dL (65-115); Osmolality Calculated 294 mOsm/kg (285-295); Sodium 140 mmol/L (136-145)
[2023-01-05 07:15] LABS: Anion Gap 15.4 (5-19); Potassium 4.4 mmol/L (3.5-5.1)
[2023-01-05] MEDS: vancomycin 1,000 MG SDV 1000 MG XX (08:05)
[2023-01-05] MEDS: lidocaine-epi 2% 20 mL INJ INJECTION (08:05)
--- NOTE | 2023-01-05 08:06 | SUR.OPER ---
Family Notified Of Patient's Status Via Phone.
--- NOTE | 2023-01-05 08:47 | ANES.PREANE2 ---
Pre-Anesthetic Assessment Height/Weight: Height 1.8 m Weight 111.13 kg Temp Pulse Resp BP Pulse Ox O2 Del Method 97.4 F L 63 17 164/98 96 Room Air 01/05/23 06:18 01/05/23 06:18 01/05/23 06:18 01/05/23 06:18 01/05/23 06:18 01/05/23 06:18 Preop Diagnosis: Right hip DJD Operation Date: 01/04/23 07:00 Proposed Procedures p Raz Robot Anterior Hip Arthroplasty(Right) - Jay Andrea, Operation Date: 01/05/23 07:00 Proposed Procedures p RIGHT TOTAL HIP ARTHROPLASTY 62471,M16.9(Right) - Jay Andrea, DO Familial anesthetic complications: none Was Beta Norma taken within 24 hours: N/A Was Clonidine taken within 24 hours: N/A Last intake: Intake Last Liquid Date 01/04/23 Last Liquid Time 19:00 Last Solid Date 01/04/23 Last Solid Time 19:00 Social No alcohol and No tobacco Exam alert, oriented x 3 and regular rate & rhythm Airway Submandibular: within normal limits Cervical ROM: within normal limits Mallampati: Class IV Dentition: full Pulmonary Chronic Obstructive Pulmonary Disease, Exertional Dyspnea and Sleep Apnea right hemidiaphragm paralysis CV/HEM Hypertension Metabolic Hyperlipidemia and Morbid Obesity Musc/skel Lower Back Pain and Osteoarthritis/DJD Anesthetic Plan ASA status: 3 Anesthesia: Regional (specify below) (SAB) Medications/Allergies Home Medications Medication Instructions Recorded Confirmed Last Taken Type multivitamin 1 tab PO DAILY 07/24/19 01/04/23 01/02/23 History acetaminophen 500 mg tablet 1,000 mg PO PRN PRN Pain 05/27/20 01/04/23 01/04/23 History (Tylenol Extra Strength) cetirizine 10 mg tablet (Zyrtec) 5 mg PO DAILY 05/27/20 01/05/23 01/04/23 History ibuprofen 200 mg tablet 400 mg PO BID PRN Pain 05/27/20 01/05/23 12/28/22 History custom orthotic #1 ea 07/14/20 12/20/22 Unknown Rx cpap machine and supplies #1 ea 01/08/21 12/20/22 Unknown Rx tamsulosin 0.4 mg capsule 0.4 mg PO DAILY #90 caps 0201/04/23 01/04/23 Rx pravastatin 20 mg tablet 20 mg PO DAILY #90 tabs 07/17/21 01/04/23 01/02/23 Rx celecoxib 400 mg capsule (Celebrex) 400 mg PO BID #60 caps 12/25/21 01/05/23 12/28/22 Rx tadalafil 20 mg tablet 20 mg PO DAILY PRN sexual activity 01/11/22 01/04/23 Unknown Rx #30 tabs hydrochlorothiazide 25 mg tablet 25 mg PO DAILY #90 tabs 02/04/22 01/04/23 01/04/23 Rx glucosamine sulf dipot 2 cap PO DAILY 03/18/22 01/04/23 01/02/23 History chlr,msm,chond 550 mg-C 30 mg-alejandra 1 mg capsule (Glucosamine Chondroitin) zolpidem 5 mg tablet (Ambien) 5 mg PO .QHS PRN Sleep 05/19/22 01/04/23 Unknown History albuterol sulfate 90 mcg/actuation 1 inh inhalation QID PRN shortness 06/17/22 01/04/23 Unknown Rx aerosol inhaler (Ventolin HFA) of breath or wheezing #8.5 grams apixaban 2.5 mg tablet (Eliquis) 2.5 mg PO BID blood clot 01/05/23 Unknown Rx prevention 35 days #70 tabs losartan 50 mg tablet 50 mg PO DAILY 01/05/23 01/05/23 01/04/23 History ondansetron 4 mg disintegrating 4 mg PO DAILY PRN nausea and 01/05/23 Unknown Rx tablet vomiting 3 days #9 tabs Allergies Allergy/AdvReac Type Severity Reaction Status Date / Time No Known Allergies Allergy Verified 01/04/23 09:42 Current Medications Generic Name Dose Route Start Last Admin Trade Name Freq PRN Reason Stop Dose Admin Sodium Chloride 1,000 mls @ 30 mls/hr 01/05/23 06:15 01/05/23 07:10 Sodium Chloride 0.9% IV 01/06/23 06:14 30 mls/hr .Q24H KIRA Administration PFSH Anesthesia Medical History COPD (chronic obstructive pulmonary disease) Degenerative joint disease of right hip Diverticulosis Essential hypertension Hip arthritis Hyperlipidemia Nephrolithiasis Obstructive sleep apnea Pes planus of both feet Phrenic nerve paralysis Radial fracture Surgical History History of appendectomy History of lumbar fusion History of tonsillectomy Family History Other Hypertension Social History Smoking and tobacco status: former smoker Quit status (tobacco): has quit using tobacco Year quit tobacco: 2007 Former quit date comment: 1 ppd X 35 years Alcohol intake: current Alcohol intake frequency: few times a week Data Anesthesia 01/05/23 06:29 01/05/23 06:29 Short CBC 01/05/23 Range/Units 06:29 WBC 7.4 (4.0-10.0) 10^3/uL Hgb 15.8 (11.7-16.6) g/dL Hct 47.0 (42.0-52.0) % MCV 92.2 (80-94) fl Plt Count 223 (130-400) 10^3/cmm Neut % (Auto) 65.2 % Neut # (Auto) 4.85 (1.8-7.7) 10^3/uL BMP 01/05/23 06:29 Sodium 140 Potassium 4.4 Chloride 102 Carbon Dioxide 27 BUN 23 Creatinine 0.9 Glucose 101 Calcium 9.7 Blood Bank 01/05/23 06:29 Blood Type O Negative Rho(D) Type Negative Antibody Screen Negative Cardiac Studies: Sestamibi Stress Test (Cardiology) 03/15/22
--- NOTE | 2023-01-05 10:18 | SUR.OPER ---
Family Notified Of Patient's Status Via Phone.
--- NOTE | 2023-01-05 10:26 | XR_ITS ---
WS: [id number] Right hip, C-arm fluoroscopy views, 01/05/2023 Clinical Data: OR PICS Comparison: None. Findings: Dr. Andrea performed a right hip arthroplasty Impression: Right hip arthroplasty
--- NOTE | 2023-01-05 11:02 | PM.OP2 ---
Brief Operative Note Date of procedure: 01/05/23 <RYAN Crespo - Last Filed: 01/05/23 12:36> 01/05/23 <Jay Andrea DO - Last Filed: 01/05/23 12:16> Pre-op diagnosis: Right hip DJD <RYAN Crespo - Last Filed: 01/05/23 12:36> Post-op diagnosis: same <RYAN Crespo - Last Filed: 01/05/23 12:36> Procedure Done: Right Total Hip Arthroplasty, Raz robotic assisted <RYAN Crespo - Last Filed: 01/05/23 12:36> Surgeon: Jay Andrea <RYAN Crespo - Last Filed: 01/05/23 12:36> Estimated blood loss (mL): 350 <RYAN Crespo - Last Filed: 01/05/23 12:36> Complications: none <RYAN Crespo - Last Filed: 01/05/23 12:36> Post-op Plan: Hospitalist will be seeing patient he will be admitted to floor for observation. DVT prophylaxis protocol in place. Weight-bear as tolerated. Anterior hip precautions. Preoperative antibiotics and postoperative TXA. Plan is to discharge home tomorrow. <RYAN Crespo - Last Filed: 01/05/23 12:36> Hospitalist will be seeing patient he will be admitted to floor for observation. DVT prophylaxis protocol in place. Weight-bear as tolerated. Pain control, anterior hip precautions. Preoperative antibiotics and postoperative TXA. PT/OT. Plan is to discharge home tomorrow. <Jay Andrea DO - Last Filed: 01/05/23 12:16> Condition: stable <RYAN Crespo - Last Filed: 01/05/23 12:36> Disposition: PACU <RYAN Crespo - Last Filed: 01/05/23 12:36> floor <Jay Andrea DO - Last Filed: 01/05/23 12:16> Coding Level of Care Code Acute Code for Chg Fwd
--- NOTE | 2023-01-05 11:04 | XRR_ITS ---
PROCEDURE INFORMATION: Exam: XR Right Hip Exam date and time: 01/05/2023 11:12 AM Age: 67 years old Clinical indication: Device placement; Other: Hilario right; Prior surgery; Surgery date: Post-operative (0-2 days); Additional info: Post op hilario, do in pacu TECHNIQUE: Imaging protocol: Radiologic exam of the right hip. Views: 1 view hip with pelvis when performed. COMPARISON: OT XR hip RT 1V wo/w pel [id number] 01/05/2023 7:26 AM FINDINGS: Bones/joints: There is a normal appearing right total hip prosthesis. Moderate degenerative changes are seen in the left hip. There is partially visualized lower lumbar posterior metallic fusion hardware. Soft tissues: Unremarkable. XR/XR hip RT 2-3V wo/w pel* [id number] IMPRESSION: Normal appearing right total hip arthroplasty. Moderate degenerative changes in the left hip.
--- NOTE | 2023-01-05 11:06 | P.PCN_ITS ---
Documented by User: RYAN Crespo 01/05/23 12:37 PACU note Narrative: Patient is a 67-year-old male that had right hip degenerative joint disease. Patient underwent right total hip arthroplasty, Raz Robotic assisted. Pt is Awake and alert patient here in PACU patient has spinal anesthesia still in place unable to assess sensory and motor function. perfusion to toes normal and pt can wiggle toes and flex/extend ankle. pt able to perform straight leg raise, Femoral nerve intact. Silvadene dressings dry and in place. Hospitalist will be seeing patient. he will be admitted to floor for observation. DVT prophylaxis protocol in place. Weight bear as tolerated. Anterior hip precau tions. Preoperative antibiotics and postoperative TXA. Plan is to discharge home tomorrow. Exam: awake Disposition: admitted Documented by User: Jay Andrea DO 01/05/23 12:24 PACU note Narrative: Patient is a 67-year-old male that had right hip degenerative joint disease. Patient underwent right total hip arthroplasty, Raz Robotic assisted. Pt is Awake and alert patient here in PACU patient has spinal anesthesia still in place unable to assess sensory and motor function. perfusion to toes normal and pt can wiggle toes and plantarflex and dorsiflex ankle. pt able to perform straight leg raise, Femoral nerve intact. Further neurovascular assessment postoperatively on the floor. Distal pulses are palpable toes are warm and w ell-perfused. Silverlon dressings dry and in place. Hospitalist will be seeing patient. he will be admitted to floor for observation. DVT prophylaxis protocol in place. Weight bear as tolerated. Anterior hip precautions. Preoperative antibiotics and postoperative TXA. Plan is to discharge home tomorrow.
--- NOTE | 2023-01-05 11:29 | PM.CONSULT ---
Providers/Reason For Consult Consulting Physician/Specialty*: Internal Medicine Reason for Consult*: Medical Management Requesting Physician: Dr Jay Andrea Attending Physician: Jay Andrea DO Primary Care Provider: Waldo Arango MD History of Present Illness History of Present Illness Lonny Quach is a 67 year old male with a past medical history significant for COPD, right diaphragm/phrenic nerve paralysis, hypertension, hip osteoarthritis, obstructive sleep apnea, and hyperlipidemia who underwent robot-assisted right total hip arthroplasty by Dr. Andrea. Internal medicine consulted for medical management. Patient evaluated in PACU. Per PACU nurse, he received MAC and spinal for anesthesia. He current denies any pain. He denies any complaints. He is on room air. Review of Systems Narrative: A complete review of systems was obtained and is negative except as stated in HPI. Medications/Allergies Home Medications Medication Instructions Recorded Confirmed Last Taken Type multivitamin 1 tab PO DAILY 07/24/19 01/04/23 01/02/23 History acetaminophen 500 mg tablet 1,000 mg PO PRN PRN Pain 05/27/20 01/04/23 01/04/23 History (Tylenol Extra Strength) cetirizine 10 mg tablet (Zyrtec) 5 mg PO DAILY 05/27/20 01/05/23 01/04/23 History ibuprofen 200 mg tablet 400 mg PO BID PRN Pain 05/27/20 01/05/23 12/28/22 History custom orthotic #1 ea 07/14/20 12/20/22 Unknown Rx cpap machine and supplies #1 ea 01/08/21 12/20/22 Unknown Rx tamsulosin 0.4 mg capsule 0.4 mg PO DAILY #90 caps 07/14/21 01/04/23 01/04/23 Rx pravastatin 20 mg tablet 20 mg PO DAILY #90 tabs 07/17/21 01/04/23 01/02/23 Rx celecoxib 400 mg capsule (Celebrex) 400 mg PO BID #60 caps 12/25/21 01/05/23 12/28/22 Rx tadalafil 20 mg tablet 20 mg PO DAILY PRN sexual activity 01/11/22 01/04/23 Unknown Rx #30 tabs hydrochlorothiazide 25 mg tablet 25 mg PO DAILY #90 tabs 02/04/22 01/04/23 01/04/23 Rx glucosamine sulf dipot 2 cap PO DAILY 03/18/22 01/04/23 01/02/23 History chlr,msm,chond 550 mg-C 30 mg-alejandra 1 mg capsule (Glucosamine Chondroitin) zolpidem 5 mg tablet (Ambien) 5 mg PO .QHS PRN Sleep 05/19/22 01/04/23 Unknown History albuterol sulfate 90 mcg/actuation 1 inh inhalation QID PRN shortness 06/17/22 01/04/23 Unknown Rx aerosol inhaler (Ventolin HFA) of breath or wheezing #8.5 grams apixaban 2.5 mg tablet (Eliquis) 2.5 mg PO BID blood clot 01/05/23 Unknown Rx prevention 35 days #70 tabs losartan 50 mg tablet 50 mg PO DAILY 01/05/23 01/05/23 01/04/23 History ondansetron 4 mg disintegrating 4 mg PO DAILY PRN nausea and 01/05/23 Unknown Rx tablet vomiting 3 days #9 tabs Allergies Allergy/AdvReac Type Severity Reaction Status Date / Time No Known Allergies Allergy Verified 01/04/23 09:42 PFSH Acute PFSH: Medical History (Updated 01/05/23 @ 15:48 by Hammad Centeno MD) Abnormal stress test Acute sinusitis Cervical stenosis of spinal canal Contact dermatitis COPD (chronic obstructive pulmonary disease) Degenerative joint disease of right hip Diaphragm paralysis Diverticulosis MOTTA (dyspnea on exertion) Encounter for pre-operative examination Erectile dysfunction Essential hypertension Exertional dyspnea Hip arthritis History of colon polyps Hyperlipidemia Low iron Lumbar disc disease Lumbar stenosis with neurogenic claudication Muscle spasm of right shoulder Nephrolithiasis Obstructive sleep apnea Pes planus of both feet Phrenic nerve paralysis Radial fracture Surgical History History of appendectomy History of lumbar fusion History of tonsillectomy Family History Other Hypertension Social History Smoking and tobacco status: former smoker Quit status (tobacco): has quit using tobacco Year quit tobacco: 2007 Former quit date comment: 1 ppd X 35 years Alcohol intake: current Alcohol intake frequency: few times a week Vitals/I&O/Wt Last Vital Signs Temp 97.0 F L 01/05/23 10:52 Pulse 88 01/05/23 11:10 Resp 20 H 01/05/23 11:10 BP 116/76 01/05/23 11:10 Pulse Ox 94 01/05/23 11:10 O2 Del Method Room Air 01/05/23 11:10 O2 Flow Rate 6 01/05/23 10:52 01/04/23 01/05/23 01/05/23 22:59 06:59 14:59 Intake Total 100 / 100 1570 / 1570 Output Total 850 / 850 Balance 100 / 100 720 / 720 Weight last 48 hrs Weight 111.13 kg Physical Exam Narrative: General: Patient is awake and alert. Very pleasant. On PACU stretcher. Head: Normocephalic. Atraumatic. EOM intact. Neck: No JVD. Cardiovascular: RRR. No gallops. No murmurs. Lungs: Breath sounds are decreased on the right lung quan. Left quan clear to auscultation. No respiratory distress. Currently on room air. No crackles or wheezing. Skin: No jaundice. Abdomen: Normal bowel sounds, abdomen soft and nontender. Rectal: Rectal exam not performed since no symptoms indicated blood loss. Extremities: No cyanosis or clubbing. Neurological: No myoclonus. Urinary Catheter Management: Cano: Cath Placed During This Visit: yes Urinary Catheter Date of Insertion: 01/05/23 Urinary Catheter Time of Insertion: 07:25 Data 01/05/23 06:29 01/05/23 06:29 A&P Assessment and plan (1) Hip arthritis: Right his osteoarthritis Status post right LINDA with Raz assisted anterior approach with Dr. Andrea Agree with DVT prophylaxis with apixaban, periop abx, multimodal point control Start bowel regiment Therapy (2) Phrenic nerve paralysis: With diaphragmatic dysfunction Markedly increased risk for postop pneumonia Pulmonary toilet Inspiratory spirometer Low threshold for chest x-ray (3) COPD (chronic obstructive pulmonary disease): Not in acute exacerbation Breathing treatments as needed (4) Essential hypertension: Blood pressure soft, hold HCTZ for now Continue losartan (5) Hyperlipidemia: Continue statin, formulary equivalents Qualifiers: Hyperlipidemia type: pure hypercholesterolemia Qualified Code(s): E78.00 - Pure hypercholesterolemia, unspecified (6) Obstructive sleep apnea: CPAP for sleeping Plan DVT prophylaxis: Apixaban CODE STATUS: Full code Thank for this consultation. Internal medicine will continue to follow patient. Consult Attestations Medical Necessity Statement: Agree with observation admission. Coding Level of Care Code Acute Code for Chg Fwd Diagnoses Hip arthritis M16.10 Phrenic nerve paralysis G56.80 COPD (chronic obstructive pulmonary disease) J44.9 Essential hypertension I10 Hyperlipidemia E78.00 Hyperlipidemia type: pure hypercholesterolemia Obstructive sleep apnea G47.33
[2023-01-05] MEDS: lactated ringers 1,000 ML 100 ML IV ×2 (12:06→22:08)
--- NOTE | 2023-01-05 12:19 | P.OP_ITS ---
Operative Report Date of procedure: January 05, 2023 Pre-op diagnosis: Preop Diagnosis Right hip DJD Procedure: Post-op diagnosis: Same Procedure done: Right total hip arthroplasty?Raz robotic assisted?anterior?approach Implants: [place] Trident acetabular shell size 56 mm [place] acetabular screw 30 mm [place] acetabular screw 20 mm Accolade II 127 degree size 6? femur stem Trident 0 degree polyethylene 36 degree inner diameter 36 mm femoral head ceramic +2.5 mm Surgeon: Jya Andrea DO Anesthesia: Other (Spinal) Estimated blood loss: 350 mL IV fluids: 900 mL Complications: None Findings: See operative report narrative Condition: stable Disposition: floor Brief History: Patient is a 67-year-old female presented to my outpatient office setting findings consistent with krap-an-dyff arthritis advanced degenerative joint disease of the right hip.? We talked about treatment options as far as nonoperative and operative intervention. Pt has failed conservative treatment.? Patient's had prior hip injection he is now over 90 days out from his date of injection. He has been medically optimized through our preoperative clearance team. We talked about treatment options at this point time pt understands the risk benefits complication alternatives surgical nonsurgical treatment options.? Patient understands the risk of surgery and agrees to proceed.? Patient has underwent a preoperative evaluation. Pt cleared for surical intervention. Pt understood and was agreeable to proceed with a right total hip arthroplasty Raz robotic assisted through an anterior approach. Consent was reviewed and signed with patient.?? All questions answered.? Patient will be admitted postoperatively. Procedure: Patient was seen evaluated in the preoperative holding area.? Consent was reviewed and signed with patient.? Correct operative extremity was then marked. ? All questions were answered at this time.? Once cleared by anesthesia used to brought back to the operative suite he then underwent anesthesia per the anesthesia department of a spinal anesthetic. The patient was administered tranexamic acid and preop antibiotics, and placed in the supine position. All bony prominences were properly padded, securely fixed to the table, and administered?general?anesthetic. The patient was subsequently transferred from the hospital bed to the [place] table. Bilateral lower extremities were placed in the traction boots. The pelvis was well approximated against the perineal post.? Final timeout performed.? Patient received appropriate preoperative antibiotics. Both hips were then prepped and draped in a normal orthopedic fashion.? Started with a small incision 2 fingerbreadths above the ASIS on the left iliac wing to place? pelvic arrays.? Small incision was made directly down to bone.? 3 pelvic pins were placed with excellent fixation.? The robotic array was secured to the nonoperative iliac wing using sterile technique. The extremity was then definitively draped in standard, sterile fashion.? The array was found to be visible by the robot. ?A standard??anterior?supine approach was performed to the?operative hip joint. The skin was incised down to the tensor fascia rk muscle and fascia. Fascia was split longitudinally in line with its fibers. The tensor fascia rk muscle was retracted laterally. The appropriate retractors were placed superiorly. Lateral circumflex vessels were identified and appropriately ligated. The hip capsule was then identified.? Appropriate retractors were placed superiorly and inferiorly along the capsule directly onto bone.??That was split longitudinally up to the acetabular rim in line with the femoral neck. The femoral capsule was found to be significantly hypertrophic, thickened, and significantly fibrotic. The capsule was then elevated both superiorly and inferiorly down to the lesser trochanter as well as up towards the greater trochanter.? Tag stitches were applied with 0 Vicryl into the capsule.? Femoral check point was?then inserted and confirmed on the lateral trochanter proximal femur.? .? A distal marker?of a sterile EKG lead was placed into the distal femur for measurement of leg lengths.? Preoperative leg lengths were registered and confirmed at this point. Next the appropriate-sized neck cut was then performed after being measured with robotic assistance. Femoral head was removed atraumatically this was found to have significant degenerative changes and deformity with significant osteophyte formation.? Femoral head was found to be severely degenerated and flattening with, eburnated bone. Acetabulum was also inspected and was found to have peripheral osteophytes as well as no evidence of cartilage consistent with culp-mc-[id number] arthritis.? Appropriate retractors were then placed in the?anterior?and posterior wall.? The remaining labrum was then excised from the periphery of the acetabular rim. Pulvinar was excised.? At this point registration for the Raz was performed on the acetabular side and confirmed. Once confirmed, any osteophytes able to be were removed. We planned 40 degrees of lateral opening and 20 degrees of anteversion. At this point, we reamed and medialized to the inner wall of the acetabulum with a size?56?reamer for line to line fit.?The acetabulum was found to have good bleeding bone throughout.?? Reamer removed excellent bleeding bone circumferentially with sufficient?anterior?and posterior wall. ?The definitive acetabular cup 56 mm was inserted and impacted under?Raz guidance with the appropriate amount of anteversion and lateral opening. It was then secured with 2x 6.5 mm cancellous screws in appropriate safe zone position.? I subsquently drilled measured and place appropriate length acetabular screws which measured 30 mm and 20 mm.? These had excellent fixation final x-rays were taken of the acetabular work and showed a seated and well fixed acetabular cup with appropriate position acetabular screws.? ?Next a 36-mm X3 neutral liner was impacted into the?acetabular shell and secured. Hip was then irrigated with copious amounts of irrigation. At this point, the remaining femoral releases were then performed allowing the adequate mobilization of the?right?femur.? Traction was confirmed to being off to the right lower extremity and the femur was then externally rotated, extended, and adducted giving adequate exposure of the proximal femur in the surgical wound. Box cut was then used to enter the intramedullary canal of the?femur. Canal finder was placed down the canal of the?operative femur. Appropriate-sized broaches from a size 0 up to a size 6 were impacted down the operative femoral canal with the appropriate amount of anteversion.? A multiple trials were attempted and it was found?that?+2.5mm neck was found to be most appropriate for a soft tissue tensioning offset, stability and the leg lengths?that was confirmed with Raz. ?Stability was then assessed and excellent stability with patient external rotation of greater?than 90 degrees and traction with no evidence of hip instability.? Appropriate tension noted of the soft tissues. At this point, the hip was relocated.?Raz guidance was again used to confirm appropriate leg lengths.? I utilized C arm to evaluate for leg lengths as well I did slightly at the lengthen comparative to the contralateral extremity but this was the appropriate size for patient's stability and excellent soft tissue tensioning as well as this was mapped with her preoperative planning given she had been significantly shortened given her arthritis.? Operative hip was then re-dislocated using a bone hook. All trials were then removed from the?operative femur. Adequate exposure was then once again obtained. The trials were removed. The definitive Accolade II stem size 6 was impacted down the?femoral canal with the appropriate amount of anteversion. The appropriate sized head 36 mm ceramic +2.5 mm was impacted onto the trunnion, and the?operative?hip was then relocated with traction and internal rotation. Final measurements were obtained on Raz confirming leg lengths and offset.? Once again hip stability was assessed and found to have excellent stability and appropriate soft tissue tensioning.? Hip was irrigated with copious amounts of irrigation.? Vancomycin powder was placed within the wound bed for added infection prophylaxis.? The superior and inferior leaflets of the capsule were then closed with Ethibond suture.? Vicryl tag stitches were removed.? The superficial layer of the tensor fascia rk fascia was closed using 0 stratafix suture in a running fashion.? Subcutaneous tissues were closed with running 3-0 Stratafix, skin was closed with 4-0 monocryl.?Surgical Prineo glue and steri strips were?applied and covered with a optsite dressing to the operative side.?The incision on the non-operative side for the robotic array was irrigated and closed with layered fashion of 0 Vicryl, 2-0 Vicryl and running Monocryl suture and surgical glue and covered with Silverlon. ?The patient was subsequently awoken per Anesthesia and transferred to PACU in satisfactory condition. ?Leg lengths and rotational profile were found to be appropriate. ? DISPOSITION: The patient will be admitted to the hospital for initiation of DVT prophylaxis, physical therapy, pain control. The patient is to weight bear as tolerated.?Anterior?hip precautions, postoperative antibiotics,?postoperative TXA and Eliquis?for DVT prophylaxis.? Patient will receive appropriate discharge instructions as well as pain medication postoperatively and will follow up in my office in 2 weeks.? Patient with work with PT/OT.? Internal medicine will be consulted for medical management
[2023-01-05] MEDS: oxyCODONE 5 mg IR Tab/Cap PO (13:57)
[2023-01-05] MEDS: chlorhexidine gluconate 0.12% Btl 473 mL 30 ML MUCOUS MEM ×3 (13:57→20:47)
--- NOTE | 2023-01-05 14:36 | ANE.PACU2 ---
Inpatient post-anesthesia follow up: Airway intact: Yes Vital signs: Temperature 97.4 F Pulse Rate 61 Respiratory Rate 16 Blood Pressure 144/91 Pulse Oximetry 99 Oxygen Delivery Me thod Room Air Oxygen Flow Rate 6 Fraction of Inspir ed Oxygen Hydration adequate: Yes Nausea and vomiting: No Pain level: 1 Mental status: Baseline
[2023-01-05] MEDS: HYDROmorphone 1 mg/mL INJ 1 mL 0.5 MG IVP (15:59)
[2023-01-05] MEDS: iron polysaccharide complex 150 mg Capsule PO (17:38)
[2023-01-05] MEDS: sennosides-docusate Tablet 2 TAB PO (17:38)
[2023-01-05] MEDS: calcium carb-vit d 600mg/400unit 1 Tablet 1 EACH PO (17:38)
[2023-01-05] MEDS: TRAMadol 50 mg Tablet PO ×2 (17:38→21:50)
[2023-01-05] MEDS: mupirocin oint 22 gm 1 APPLIC NASAL (17:39)
--- NOTE | 2023-01-05 19:06 | PC.NURSE ---
Cano catheter pulled per doctors order and patient request at 1600.
[2023-01-06] VITALS (8 sets, daily range): BP systolic 148–150; BP diastolic 72–91; PULSE 80–85; RESP 16–18; TEMP 37–37.2; O2SAT 94
[2023-01-06] MEDS: oxyCODONE 5 mg IR Tab/Cap PO ×3 (01:28→11:31)
[2023-01-06] MEDS: TRAMadol 50 mg Tablet PO ×2 (04:53→09:35)
[2023-01-06 05:16] LABS: Basophils # 0.1 10^3/uL (0.0-0.1); Basophils % 0.5 %; Eosinophils # 0.1 10^3/uL (0.0-0.8); Eosinophils % 1.3 %; Hematocrit 39.4 % (42.0-52.0); Lymphocytes # 1.5 10^3/uL (0.8-4.8); Lymphocytes % 13.2 %; Mean Corpuscular Hemoglobin 30.9 pg (28.0-34.0); Mean Corpuscular Volume 93.6 fl (80-94); Mean Platelet Volume 9.2 fL (7.4-10.4); Monocytes # 1.3 10^3/uL (0.2-0.9); Monocytes % 11.7 %; Neutrophils # 8.09 10^3/uL (1.8-7.7); Neutrophils % 72.9 %; Nucleated Red Blood Cells % 0 %; Platelet Count 187 10^3/cmm (130-400); Red Blood Count 4.21 10^6/uL (4.1-5.3); Red Cell Distribution Width 13.2 % (12.1-15.1); White Blood Count 11.1 10^3/uL (4.0-10.0)
[2023-01-06 05:32] LABS: Anion Gap 11.5 (5-19); Blood Urea Nitrogen 15 mg/dL (8-23); Calcium 8.7 mg/dL (8.5-10.5); Carbon Dioxide 27 mmol/L (22-29); Chloride 102 mmol/L (98-107); Glomerular Filtration Rate 95.8 mL/min (90-130); Glucose 117 mg/dL (65-115); Osmolality Calculated 284 mOsm/kg (285-295); Potassium 4.5 mmol/L (3.5-5.1); Sodium 136 mmol/L (136-145)
[2023-01-06] MEDS: acetaminophen 1,000 MG/100 ML PIGGYBACK 400 MG IV (05:36)
[2023-01-06] MEDS: ceFAZolin 2,000 MG in sodium chloride 0.9% (plus) 50 ML 100 MG IV (06:14)
[2023-01-06] MEDS: HYDROmorphone 1 mg/mL INJ 1 mL 0.5 MG IVP (06:20)
[2023-01-06] MEDS: tamsulosin 0.4 mg Capsule PO (07:37)
[2023-01-06] MEDS: atorvastatin 40 mg Tablet 20 MG PO (07:37)
[2023-01-06] MEDS: multivitamin therapeutic Tablet 1 TAB PO (07:37)
[2023-01-06] MEDS: iron polysaccharide complex 150 mg Capsule PO (07:37)
[2023-01-06] MEDS: sennosides-docusate Tablet 2 TAB PO (07:37)
[2023-01-06] MEDS: cetirizine 10 mg Tablet 5 MG PO (07:38)
[2023-01-06] MEDS: calcium carb-vit d 600mg/400unit 1 Tablet 1 EACH PO (07:38)
[2023-01-06] MEDS: losartan 50 mg Tablet PO (07:38)
[2023-01-06] MEDS: apixaban 5 mg Tablet 2.5 MG PO (07:39)
[2023-01-06] MEDS: chlorhexidine gluconate 0.12% Btl 473 mL 30 ML MUCOUS MEM (07:41)
--- NOTE | 2023-01-06 11:11 | PM.PN ---
Subjective Subjective: Patient seen and examined this morning is done well with therapy and ambulated well. He complains of soreness in his thigh postsurgical. His swelling is normal postoperatively. His compartments are soft and compressible. His dressings clean dry and intact. His pain is controlled with medications. No other issues overnight. Planning on discharging today. Vitals/I&O/Wt Last Vital Signs Temp 98.6 F 01/06/23 07:44 Pulse 85 01/06/23 07:44 Resp 17 01/06/23 07:44 BP 148/91 01/06/23 07:44 Pulse Ox 94 01/06/23 07:44 O2 Del Method Room Air 01/06/23 07:44 O2 Flow Rate 6 01/05/23 10:52 01/05/23 01/06/23 01/06/23 22:59 06:59 14:59 Intake Total 1500 / 3795 150 / 3945 290 / 290 Output Total 225 / 1075 600 / 1675 Balance 1275 / 2720 -450 / 2270 290 / 290 Physical Exam Narrative: Examination right lower extremity: Examination right lower extremity dressings on in place clean dry and intact normal postoperative swelling compartments are soft compressible to the right thigh. Patient is able to wiggle toes plantarflex and dorsiflex ankle he is able to perform a straight leg raise but does have some pain and soreness noted up at the hip. Able to perform knee extension. Sensations intact to light touch distally. His dressing has some mild saturation to the left iliac wing and has lost some stick and will be replaced by nursing staff today. Distal pulses are palpable toes warm well perfused. Urinary Catheter Management: Cano: Cath Placed During This Visit: yes Urinary Catheter Date of Insertion: 01/05/23 Urinary Catheter Time of Insertion: 07:25 Data 01/06/23 05:07 01/06/23 05:07 Xray Ortho: My impression: X-rays multiple views of the right hip reviewed in person interpreted by myself demonstrating stable right total hip arthroplasty implant with stable implant Tatian no evidence of periprosthetic fracture dislocation or loosening appropriate leg lengths noted. A&P Assessment and plan (1) Status post total hip replacement, right: Plan Regular diet Weightbearing as tolerated right lower extremity Anterior hip precautions PT/OT Pain control Complete postoperative TXA and postoperative antibiotics DVT prophylaxis?[facility] Internal medicine on board for medical management appreciate their assistance Patient stable for discharge from orthopedic standpoint will discharge home today. Patient receive appropriate discharge directions as well as pain medication postoperatively as well as postoperative DVT prophylaxis we will follow-up in the orthopedic office in 2 weeks. A.m. labs reviewed Postoperative x-rays reviewed stable right total hip arthroplasty implantation Attestations Medical Necessity Statement*: Status post right total hip arthroplasty ongoing care Coding Level of Care Code Acute Code for Chg Fwd Diagnoses Status post total hip replacement, right Z96.641
--- NOTE | 2023-01-06 11:25 | PM.DCS ---
Discharge Providers Date of Admission: 01/05/23 11:04 Date of Discharge: January 06, 2023 Attending Provider at Admission: Jay Andrea DO Attending Provider at Discharge: Jay Andrea DO Consults: Dr. Centeno?hospitalist internal medicine Primary Care Provider: Waldo Arango MD Diagnoses at Discharge Discharge Diagnosis (1) Status post total hip replacement, right: Status: Acute Reason for Visit Reason for Visit: M16.9 Brief History: Right total hip arthroplasty?Raz robotic assisted anterior approach Hospital Course Hospital Course Patient was brought to the hospital through the preoperative holding area with plan for right total hip arthroplasty for right hip degenerative joint disease. Once cleared by anesthesia for surgery subsequently was taken back to the operative suite underwent? anesthesia per the anesthesia department and then underwent right total hip arthroplasty with Raz robotic assistance without any complications.? Patient was then subsequently taken back to PACU in stable condition recovering well. Once recovered, patient was then subsequently admitted to the floor postoperatively.? Internal medicine was consulted for medical management assistance.? Patient weightbearing as tolerated to the right lower extremity, anterior hip precautions.? PT/OT.? Pain control.? DVT prophylaxis.? Postoperative antibiotics and TXA.?? dressing was change as needed.? Internal medicine was on board and appreciate their medical management and assistance. Pt was determined on postoperative day 1 the patient was stable for discharge from orthopedic as well as internal medicine standpoint.? Patient's labs were monitored daily.?Patient will receive appropriate pain medication as well as DVT prophylaxis postoperatively.?? Appropriate discharge instructions as well.? Patient was then discharged in stable condition.? Patient will discharge home .? Pt will follow-up with Dr. Andrea in the office in 2 weeks.? Patient understands and agrees with current plan.? All questions answered.? Understands there is any issues or concerns and contact the office. Physical Exam Narrative: Examination right lower extremity: Examination right lower extremity dressings on in place clean dry and intact normal postoperative swelling compartments are soft compressible to the right thigh. Patient is able to wiggle toes plantarflex and dorsiflex ankle he is able to perform a straight leg raise but does have some pain and soreness noted up at the hip. Able to perform knee extension. Sensations intact to light touch distally. His dressing has some mild saturation to the left iliac wing and has lost some stick and will be replaced by nursing staff today. Distal pulses are palpable toes warm well perfused. Urinary Catheter Management: Cano: Cath Placed During This Visit: yes Urinary Catheter Date of Insertion: 01/05/23 Urinary Catheter Time of Insertion: 07:25 Discharge Data Studies Completed and Pending Completed Studies During Hospitalization Category Date Time Status XR hip RT 1V wo/w pel 14824 Routine Exams 01/05/23 10:26 Completed XR hip RT 2-3V wo/w pel* [id number] Routine Exams 01/05/23 11:04 Completed Pending at discharge Category Date Time Status C-arm Fluoroscopy 77011 Routine Exams 01/05/23 06:06 Taken Basic Metabolic Panel AM LABS Lab 01/07/23 04:00 Ordered Basic Metabolic Panel AM LABS Lab 01/08/23 04:00 Ordered Complete Blood Count w/Auto AM LABS Lab 01/07/23 04:00 Ordered Complete Blood Count w/Auto AM LABS Lab 01/08/23 04:00 Ordered Radiology Impressions Hip/Pelvis X-Ray 01/05/23 11:04 IMPRESSION: Normal appearing right total hip arthroplasty. Moderate degenerative changes in the left hip. Laboratory Results WBC 11.1 10^3/uL (4.0-10.0) H 01/06/23 05:07 RBC 4.21 10^6/uL (4.1-5.3) 01/06/23 05:07 Hgb 13.0 g/dL (11.7-16.6) 01/06/23 05:07 Hct 39.4 % (42.0-52.0) L 01/06/23 05:07 MCV 93.6 fl (80-94) 01/06/23 05:07 MCH 30.9 pg (28.0-34.0) 01/06/23 05:07 MCHC 33.0 g/dL (30.0-36.0) 01/06/23 05:07 RDW 13.2 % (12.1-15.1) 01/06/23 05:07 Plt Count 187 10^3/cmm (130-400) 01/06/23 05:07 MPV 9.2 fL (7.4-10.4) 01/06/23 05:07 Neut % (Auto) 72.9 % 01/06/23 05:07 Lymph % (Auto) 13.2 % 01/06/23 05:07 [place] % (Auto) 11.7 % 01/06/23 05:07 Eos % (Auto) 1.3 % 01/06/23 05:07 Baso % (Auto) 0.5 % 01/06/23 05:07 Neut # (Auto) 8.09 10^3/uL (1.8-7.7) H 01/06/23 05:07 Lymph # (Auto) 1.5 10^3/uL (0.8-4.8) 01/06/23 05:07 [place] # (Auto) 1.3 10^3/uL (0.2-0.9) H 01/06/23 05:07 Eos # (Auto) 0.1 10^3/uL (0.0-0.8) 01/06/23 05:07 Baso # (Auto) 0.1 10^3/uL (0.0-0.1) 01/06/23 05:07 Nucleated RBC % (auto) 0 % 01/06/23 05:07 Nucleated RBCs # 0.0 /100WBC 01/06/23 05:07 Sodium 136 mmol/L (136-145) 01/06/23 05:07 Potassium 4.5 mmol/L (3.5-5.1) 01/06/23 05:07 Chloride 102 mmol/L (98-107) 01/06/23 05:07 Carbon Dioxide 27 mmol/L (22-29) 01/06/23 05:07 Anion Gap 11.5 (5-19) 01/06/23 05:07 BUN 15 mg/dL (8-23) 01/06/23 05:07 Creatinine 0.8 mg/dL (0.7-1.2) 01/06/23 05:07 GFR Calculation 95.8 mL/min (90-130) 01/06/23 05:07 Glucose 117 mg/dL (65-115) H 01/06/23 05:07 Calculated Osmolality 284 mOsm/kg (285-295) L 01/06/23 05:07 Calcium 8.7 mg/dL (8.5-10.5) 01/06/23 05:07 Blood Type O Negative 01/05/23 06:29 Rho(D) Type Negative 01/05/23 06:29 Antibody Screen Negative 01/05/23 06:29 Vitals Last Vital Signs Temp 98.6 F 01/06/23 07:44 Pulse 85 01/06/23 07:44 Resp 17 01/06/23 07:44 BP 148/91 01/06/23 07:44 Pulse Ox 94 01/06/23 07:44 O2 Del Method Room Air 01/06/23 07:44 O2 Flow Rate 6 01/05/23 10:52 Discharge Plan Discharge Patient Disposition: Home Condition: Stable Prescriptions: New ondansetron 4 mg tablet,disintegrating 4 mg PO DAILY PRN (Reason: nausea and vomiting) 3 Days Qty: 9 0RF Eliquis 2.5 mg tablet 2.5 mg PO BID 35 Days Qty: 70 0RF oxycodone 5 mg tablet 5 mg PO Q6H PRN (Reason: pain postop) 7 Days Qty: 28 0RF Calcium 600 + D(3) 600 mg-10 mcg (400 unit) tablet 1 tab PO DAILY 30 Days Qty: 30 0RF Continued (DME) custom orthotic See Rx Instructions .Route .MEDSUPPLY Qty: 1 0RF Rx Instructions: As directed multivitamin Tablet 1 tab PO DAILY zolpidem [Ambien] 5 mg tablet 5 mg PO BEDTIME PRN (Reason: Sleep) (DME) cpap machine and supplies See Rx Instructions .Route .MEDSUPPLY Qty: 1 0RF Rx Instructions: per sleep study titration set at 11 tamsulosin 0.4 mg capsule 0.4 mg PO DAILY Qty: 90 3RF pravastatin 20 mg tablet 20 mg PO DAILY Qty: 90 3RF celecoxib [Celebrex] 400 mg capsule 400 mg PO BID Qty: 60 8RF Rx Instructions: 340B tadalafil 20 mg tablet 20 mg PO DAILY PRN (Reason: sexual activity) Qty: 30 8RF Rx Instructions: administer approximately 30min before sexual activity; do not use more than 1 dose per 24hrs hydrochlorothiazide 25 mg tablet 25 mg PO DAILY Qty: 90 3RF albuterol sulfate [Ventolin HFA] 90 mcg/actuation HFA aerosol inhaler 1 inh inhalation QID PRN (Reason: shortness of breath or wheezing) Qty: 8.5 3RF cetirizine [Zyrtec] 10 mg Tablet 5 mg PO DAILY acetaminophen [Tylenol Extra Strength] 500 mg Tablet 1,000 mg PO PRN PRN (Reason: Pain) ibuprofen 200 mg Tablet 400 mg PO BID PRN (Reason: Pain) Glucosamine Chondroitin 550-30-1 mg capsule 2 cap PO DAILY losartan 50 mg tablet 50 mg PO DAILY Discharge Orders: Discharge Order (Routine); Ordered 01/06/23 Ordered By: Jay Andrea Other Ambulatory Orders: Physical Therapy Outpatient in Home Eval and Treat Other (Order) Facility: [facility] - Location: Physical Therapy Ordered By: Jay Andrea Referrals: [facility] [Other] (Order has been faxed for Outpatient Therapy if they do not call you in the next 24-48 hours. Please call them to discuss and arrange an appointment. ) Waldo Arango MD [Primary Care Provider] - 01/12/23 1:40 pm Jay Andrea DO [Physician] - 01/18/23 11:15 am (Please arrive 15 minutes prior to appointment. ) Discharge Diet: Advance as tolerated Discharge Activity: Limit activity as instructed, Use walker/crutches as instructed and As per PT/OT instructions Patient Instructions: Oxycodone, Rapid Release (By mouth), Tramadol (By mouth), Apixaban (By mouth), Total Hip Replacement (GEN), Joint Replacement Stoplight Activity Restrictions/Additional Instructions: Orthopedic discharge instructions: Patient should keep dressings clean dry and intact Okay to shower over dressings if they do become wet these should be removed and new dressings applied Keep incisions clean dry and intact, leave Silverlon bandage dressings on in place for 7 days after that may rinse incisions with warm soapy water pat dry and redress with a dry dressing Weight-bear as tolerated to operative lower extremity Anterior hip precautions as instructed by physical therapy Ice as needed for pain and swelling Take pain medication as prescribed Take antinausea medication as needed Supplement with Citracal vitamin D for bone health and healing Take Colace as needed for constipation Take blood thinner as prescribed (Eliquis) Follow-up in the orthopedic office in 2 weeks Contact the office for any questions or concerns Discharge Attestations Time Spent in Discharge Care*: less than 30 min Quality Metrics Clinical Quality Measures [ No reported AMI, CVA or VTE this stay] Coding Level of Care Code Acute Code for Chg Fwd Diagnoses Status post total hip replacement, right Z96.641 Time Spent (min) 25
== END 2023-01-06 12:24 | disposition home or self-care (01) ==
LOC: MEDSURG 14:30
PROVIDERS: Admitting Provider Student in an Organized Health Care Education/Training Program; PCP Internal Medicine; Visit Provider Student in an Organized Health Care Education/Training Program
PROC: 8E0Y0CZ Robotic Assisted Procedure of Lower Extremity, Open Approach (ICD-10-PCS; CPT 27130; principal; 2023-01-05 07:00)
DX: M16.11 Unilateral primary osteoarthritis, right hip (principal); J44.9 Chronic obstructive pulmonary disease, unspecified; J98.6 Disorders of diaphragm; I10 Essential (primary) hypertension; E78.5 Hyperlipidemia, unspecified; G47.33 Obstructive sleep apnea (adult) (pediatric); E66.01 Morbid (severe) obesity due to excess calories; Z68.34 Body mass index [BMI] 34.0-34.9, adult; Z79.899 Other long term (current) drug therapy; Z79.01 Long term (current) use of anticoagulants; Z87.891 Personal history of nicotine dependence
CPT/HCPCS: 27130; 36415; 51702; 73501; 73502; 76000; 80048; 85025; 86850; 86900; 97110; 97116; 97161; 97165; C1776; G0378; J0131; J0690; J1170; J1885; J2371; J2405; J2704; J3010; J3370; J7030; J7120

== ENCOUNTER → 2023-01-18 10:59 | Outpatient (BNVA) | payer MEDICARE, SELFPAY | PROVIDERS: PCP Internal Medicine; Visit Provider Student in an Organized Health Care Education/Training Program | DX: Z96.641 Presence of right artificial hip joint (principal) | CPT/HCPCS: 73502; 99024 ==

== ENCOUNTER → 2023-03-07 15:44 | Outpatient (BNVA) | payer MEDICARE, SELFPAY | PROVIDERS: PCP Internal Medicine; Visit Provider Student in an Organized Health Care Education/Training Program | DX: Z96.641 Presence of right artificial hip joint (principal) | CPT/HCPCS: 73502; 99024 ==

== ENCOUNTER → 2023-06-07 14:21 | Outpatient (BNVA) | payer MEDICARE, SELFPAY | PROVIDERS: PCP Internal Medicine; Visit Provider Student in an Organized Health Care Education/Training Program | DX: Z96.641 Presence of right artificial hip joint (principal) | CPT/HCPCS: 73502; 99213 ==

== ENCOUNTER → 2024-01-10 12:39 | Outpatient (BNVA) | payer MEDICARE, SELFPAY | PROVIDERS: PCP Internal Medicine; Visit Provider Student in an Organized Health Care Education/Training Program | DX: Z96.641 Presence of right artificial hip joint (principal); Z47.1 Aftercare following joint replacement surgery | CPT/HCPCS: 73502; 99213 ==

== ENCOUNTER → 2025-01-22 13:19 | Outpatient (BNVA) | payer MEDICARE, SELFPAY | PROVIDERS: PCP Internal Medicine; Visit Provider Student in an Organized Health Care Education/Training Program | DX: Z96.641 Presence of right artificial hip joint (principal); Z47.1 Aftercare following joint replacement surgery | CPT/HCPCS: 73502; 99213 ==